=== PATIENT | female | born 1950 | race Caucasian/White ===

== ENCOUNTER → 2019-12-30 08:11 | Outpatient (BNVA) | payer OTHER, BC, SELFPAY | PROVIDERS: PCP Internal Medicine; Referring Provider Internal Medicine; Visit Provider Internal Medicine Cardiovascular Disease | DX: I50.30 Unspecified diastolic (congestive) heart failure (principal); I51.89 Other ill-defined heart diseases; I48.0 Paroxysmal atrial fibrillation; I34.0 Nonrheumatic mitral (valve) insufficiency; Z88.8 Allergy status to other drugs, medicaments and biological substances; Z79.899 Other long term (current) drug therapy | CPT/HCPCS: 93005 ==

== ENCOUNTER → 2020-02-02 08:15 | Outpatient (BNVA) | payer OTHER, SELFPAY | PROVIDERS: PCP Internal Medicine; Referring Provider Internal Medicine; Visit Provider Hospitalist | DX: Z76.89 Persons encountering health services in other specified circumstances (principal) ==

== ENCOUNTER 2020-04-06 08:13 | Outpatient (REF) | payer OTHER, BC, SELFPAY ==
[2020-04-06 10:46] LABS: B Type Natriuretic Peptide 92 pg/mL (<100)
[2020-04-06 10:49] LABS: Anion Gap 11 (12-20); Blood Urea Nitrogen 28 mg/dL (9-16); Calcium 9.3 mg/dL (8.4-10.2); Carbon Dioxide 26 mmol/L (22-29); Chloride 108 mmol/L (96-108); Estimated Glomerular Filt Rate 42; Glucose Random 94 mg/dL (60-115); Potassium 4.1 mmol/L (3.3-5.1); Sodium 141 mmol/L (135-145)
== END 2020-04-06 08:14 | disposition home or self-care (01) ==
LOC: HO.LAB 08:13
PROVIDERS: PCP Internal Medicine; Visit Provider Internal Medicine Cardiovascular Disease
DX: I11.0 Hypertensive heart disease with heart failure (principal); I50.30 Unspecified diastolic (congestive) heart failure; Z79.899 Other long term (current) drug therapy; I48.0 Paroxysmal atrial fibrillation; I34.0 Nonrheumatic mitral (valve) insufficiency
CPT/HCPCS: 36415; 80048; 83880; 93005

== ENCOUNTER → 2020-04-19 13:07 | Outpatient (BNVA) | payer OTHER, BC, SELFPAY | PROVIDERS: PCP Internal Medicine; Visit Provider Internal Medicine Cardiovascular Disease | DX: I48.19 Other persistent atrial fibrillation (principal); I50.30 Unspecified diastolic (congestive) heart failure | CPT/HCPCS: 93005 ==

== ENCOUNTER 2020-04-20 09:37 | Day surgery (SDC) | payer OTHER, BC, SELFPAY ==
[2020-04-20] VITALS (7 sets, daily range): BP systolic 104–132; BP diastolic 52–74; PULSE 50–101; RESP 16–18; TEMP 36.2–36.6; O2SAT 97–100; BMI 31.9
--- NOTE | 2020-04-20 09:51 | MHC.SHP ---
Pre-Procedural Eval Section A The patient is an INPATIENT: No Changes since office visit: Yes Patient answered all questions; No Cold of Flu in the past 2 weeks, No New Medical Problems and No Changes in Medication The History & Physical has been completed within 30 days and I have reviewed it.: Yes Section B Chief Complaint: a-fib Allergies: Allergies Allergy/AdvReac Type Severity Reaction Status Date / Time eliquis Allergy Severe swelling Uncoded 02/02/20 08:37 Plan I have reviewed the history and physical and performed a pertinent physical examination on my patient. No changes have occurred unless specified.
--- NOTE | 2020-04-20 11:15 | HO.ANESPROP2 ---
[facility] Active Problems Active Problems: All Active Problems (Updated 04/19/20 @ 14:27 by Luis Sosa MD) Persistent atrial fibrillation (Acute) VANESSA on CPAP (Acute) Pulmonary hypertension (Acute) (HFpEF) heart failure with preserved ejection fraction (Acute) Diastolic dysfunction (Acute) Paroxysmal atrial fibrillation (Acute) Mitral regurgitation (Acute) HTN (hypertension) (Acute) Obesity (Acute) Past Medical History Medical History (HFpEF) heart failure with preserved ejection fraction Diastolic dysfunction HTN (hypertension) Mitral regurgitation Obesity VANESSA on CPAP Paroxysmal atrial fibrillation Pulmonary hypertension Family History Family History Father No problems noted. Mother CHF (congestive heart failure) CVD (cardiovascular disease) Surgical History Surgical History History of radiofrequency ablation (RFA) procedure for cardiac arrhythmia (~2016) Social History Social History Smoking Status: Never smoker Use of substances other than those prescribed or required for medical reasons: No Have you been hit, kicked, punched, or otherwise hurt by someone within the past year? If so, by whom?: No Advance Directives: No Advance Directives Information Provided: Yes Meds Allergies Allergy/AdvReac Type Severity Reaction Status Date / Time eliquis Allergy Severe swelling Uncoded 04/20/20 10:10 Active Medications: Current Medications Generic Name Dose Route Start Last Admin Trade Name Swapna PRN Reason Stop Dose Admin Sodium Chloride 3 ml 04/20/20 16:00 0.9 % Sodium Chloride Flush 3 Ml Syringe [facility] Home Medications Medication Instructions Recorded Confirmed Last Taken Type calcium carbonate 500 mg calcium 500 mg PO DAILY 12/30/19 04/19/20 Unknown History (1,250 mg) tablet ibandronate 150 mg tablet mg PO 12/30/19 04/19/20 Unknown History levothyroxine 125 mcg tablet 125 mcg PO DAILY 12/30/19 04/20/20 04/20/20 History 09 losartan 25 mg tablet 25 mg PO DAILY 12/30/19 04/19/20 04/20/20 History 09 multivitamin 1 tab PO DAILY 12/30/19 04/19/20 Unknown History propafenone 225 mg tablet 225 mg PO BID 12/30/19 04/20/20 04/20/20 History 09 simvastatin 10 mg tablet 10 mg PO BEDTIME 12/30/19 04/19/20 Unknown History zolpidem 10 mg tablet 10 mg PO BEDTIME PRN 12/30/19 04/19/20 Unknown History cyclobenzaprine 5 mg tablet 5 mg PO TID PRN 02/02/20 04/19/20 Unknown History epinephrine 0.3 mg/0.3 mL IM 02/02/20 04/19/20 Unknown History injection, auto-injector fluticasone 250 mcg-salmeterol 50 INHALATION 02/02/20 04/19/20 Unknown History mcg/dose blistr powdr for inhalation fluticasone propionate 50 1 spray INTRANASAL DAILY 02/02/20 04/19/20 Unknown History mcg/actuation nasal spray,suspension ibuprofen 800 mg tablet 800 mg PO BID 02/02/20 04/19/20 Unknown History furosemide 40 mg tablet 40 mg PO DAILY 04/06/20 04/19/20 Unknown History Exam Exam Date and Time: April 20, 2020 1115 Height,Weight and Vital Signs: Height 5 ft 8 in Weight 95.254 kg Last Vital Signs Temp 97.9 F 04/20/20 10:14 Pulse 101 H 04/20/20 10:14 Resp 18 04/20/20 10:14 BP 129/74 04/20/20 10:14 Pulse Ox 97 04/20/20 10:14 Airway Mallampati Class: III TM Dist: >3cm Neck ROM: Full Heart: irregular Lungs: CTA
[2020-04-20] MEDS: Lactated Ringers 500 ML 50 ML IV (11:21)
[2020-04-20 11:22] LABS: Anion Gap 14 (12-20); Blood Urea Nitrogen 21 mg/dL (9-16); Calcium 8.9 mg/dL (8.4-10.2); Carbon Dioxide 21 mmol/L (22-29); Chloride 110 mmol/L (96-108); Creatinine Clr Calc Pharmacy 51.9; Estimated Glomerular Filt Rate 42; Glucose Random 104 mg/dL (60-115); Sodium 141 mmol/L (135-145)
--- NOTE | 2020-04-20 11:48 | ECG_ITS ---
Test Reason : POST CARDIOVERSION Blood Pressure : / mmHG Vent. Rate : 055 BPM Atrial Rate : 055 BPM P-R Int : 178 ms QRS Dur : 102 ms QT Int : 452 ms P-R-T Axes : 067 060 070 degrees QTc Int : 432 ms Sinus bradycardia Otherwise normal ECG No previous ECGs available Referred By: Luis Sosa Electronically Signed By:LUIS SOSA MD
--- NOTE | 2020-04-20 11:50 | HO.CARDIVERS ---
Cardioversion Procedure Note Cardioversion Date of Procedure: 04/20/2020 Ordering Provider: Myself Performing Provider: Myself Indication for Procedure: Recurrent symptomatic atrial fibrillation Pre-Op Diagnosis: Persistent atrial fibrillation Post-Op Diagnosis: Sinus rhythm Performed with Transesophageal Echo: No History: C history of physical Consent: Verbal and Written consent was obtained from the patient before starting and confirming oral anticoagulation use. The patient was made aware of the risk of the procedure including benefits, alternatives a 2nd opinion. Procedure: After consent obtained, cardioversion pads were attached in AP and the patient was sedated by the anesthesia team. Once adequate sedation achieved, patient was delivered 200 joules of biphasic energy in AP configuration Complications: None Impression: Successfully converted to sinus rhythm Recommendations: 1. Status EKG 2. Increase propafenone to 225 mg t.i.d. 3. Follow-up with EPS in near future 4. Continue oral anticoagulation.
--- NOTE | 2020-04-20 11:52 | HO.POSTANES ---
Post Anesthesia Evaluation Post Anesthesia Evaluation Vital Signs: Vital Signs Temp Pulse Resp BP Pulse Ox 04/20/20 10:14 97.9 F 101 H 18 129/74 97 Anesthesia: General Mental Status: Awake Pain Control: Satisfactory Nausea/Vomiting: None Hydration: Adequate Anesthesia-Related Issues: No Anes. Related Issues
== END 2020-04-20 13:38 | disposition home or self-care (01) ==
PROVIDERS: PCP Internal Medicine; Visit Provider Internal Medicine Cardiovascular Disease
PROC: 5A2204Z Restoration of Cardiac Rhythm, Single (ICD-10-PCS; principal; 2020-04-20 11:30)
DX: I48.19 Other persistent atrial fibrillation (principal); Z79.01 Long term (current) use of anticoagulants; I11.0 Hypertensive heart disease with heart failure; I50.30 Unspecified diastolic (congestive) heart failure; I27.20 Pulmonary hypertension, unspecified; G47.33 Obstructive sleep apnea (adult) (pediatric); Z79.899 Other long term (current) drug therapy
CPT/HCPCS: 36415; 80048; 92960; 93005

== ENCOUNTER → 2020-05-03 09:18 | Outpatient (REF) | payer OTHER, BC, SELFPAY ==
--- NOTE | 2020-05-03 10:58 | ECG_ITS ---
Hook-up date: 2020-05-03 10:32:00 Duration: 28:28:00 Test Indications: HAWK CALVERT Medications: 63328 QRS complexes 3 Ventricular ectopics which represent <1 % of total QRS comp. 17 Supraventricular ectopics which represent <1 % of total QRS comp. * Paced QRS complexs which represent % of total QRS comp. VENTRICULAR ECTOPY 3 Isolated 0 Bigeminal Cycles 0 Couplets 0 Runs 0 Beats in Runs * Beats LONGEST at * BPM at :: -- * Beats FASTEST at * BPM at :: -- SUPRAVENTRICULAR ECTOPY 15 Isolated 1 Couplets 0 Runs 0 Beats in Runs * Beats LONGEST at * BPM at :: -- * Beats FASTEST at * BPM at :: -- HEART RATES 35 MIN at 10:53:45 2020-05-04 58 AVG 88 MAX at 07:49:38 2020-05-04 LONGEST RR 2.5840 secs at 14:05:03 2020-05-03 S-T LEVELS Channel 1 - 128 mm at 10:32:00 2020-05-03 - 128 mm at 10:32:00 2020-05-03 Channel 2 - 128 mm at 10:32:00 2020-05-03 - 128 mm at 10:32:00 2020-05-03 Channel 3 - 128 mm at 02:95:11 -- - 128 mm at 02:95:11 Basic rhythm Normal sinus rhythm Pauses upto 2.5 sconds with HR as low as 35 bpm No sustained Atrial fibrillation Rare Premature atrial complexes Frequent Sinus bradycardia Patient reported symptoms correlated with NSR Referred By: Heladio Sosa Overread By: HELADIO SOSA MD
== END ==
LOC: HO.CARD 09:18
PROVIDERS: PCP Internal Medicine; Visit Provider Internal Medicine Cardiovascular Disease
DX: I48.0 Paroxysmal atrial fibrillation (principal)
CPT/HCPCS: 93226

== ENCOUNTER → 2020-05-10 13:21 | Outpatient (BNVA) | payer OTHER, BC, SELFPAY | PROVIDERS: PCP Internal Medicine; Visit Provider Internal Medicine Cardiovascular Disease | DX: I48.0 Paroxysmal atrial fibrillation (principal); I50.30 Unspecified diastolic (congestive) heart failure; I34.0 Nonrheumatic mitral (valve) insufficiency; R00.1 Bradycardia, unspecified | CPT/HCPCS: 93005 ==

== ENCOUNTER → 2020-05-31 09:05 | Outpatient (BNVA) | payer OTHER, BC, SELFPAY | PROVIDERS: PCP Internal Medicine; Visit Provider Hospitalist ==

== ENCOUNTER → 2020-06-24 14:56 | Outpatient (REF) | payer OTHER, BC, SELFPAY ==
--- NOTE | 2020-06-24 09:50 | ECG_ITS ---
Hook-up date: 2020-06-24 15:23:00 Duration: 47:59:00 Test Indications: ADELSO,UNSPECIFIED AFIB , PAF Medications: 22583 QRS complexes 5 Ventricular ectopics which represent <1 % of total QRS comp. 6 Supraventricular ectopics which represent <1 % of total QRS comp. * Paced QRS complexs which represent % of total QRS comp. VENTRICULAR ECTOPY 5 Isolated 0 Bigeminal Cycles 0 Couplets 0 Runs 0 Beats in Runs * Beats LONGEST at * BPM at :: -- * Beats FASTEST at * BPM at :: -- SUPRAVENTRICULAR ECTOPY 4 Isolated 1 Couplets 0 Runs 0 Beats in Runs * Beats LONGEST at * BPM at :: -- * Beats FASTEST at * BPM at :: -- HEART RATES 36 MIN at 14:14:07 2020-06-25 58 AVG 86 MAX at 15:25:15 2020-06-24 LONGEST RR 2.2560 secs at 14:29:49 2020-06-25 S-T LEVELS Channel 1 - 128 mm at 15:23:00 2020-06-24 - 128 mm at 15:23:00 2020-06-24 Channel 2 - 128 mm at 15:23:00 2020-06-24 - 128 mm at 15:23:00 2020-06-24 Channel 3 - 128 mm at 03:44:21 -- - 128 mm at 03:44:21 Underlying rhythm is sinus; Average ventricular rate 58/min; 36-86/min; Longest pause 2.2sec at 14:29Hrs; Very rare PAC/PVC; During activity described as 'spinning bike', patient had shortness of breath towards end of exercise; apart from sinus bradycardia, no other arrhythmias noted; during symptoms of 'lightheaded', 'palpitations', no clear arrhthmias noted, but there is underlying artifact. Possible chronotronic incompetence; correlate clinically. Referred By: Sandrine Jensen Overread By: RUPERTO MADRID
== END ==
LOC: HO.CARD 14:56
PROVIDERS: PCP Internal Medicine; Referring Provider Internal Medicine; Visit Provider Internal Medicine Cardiovascular Disease
DX: R00.1 Bradycardia, unspecified (principal)
CPT/HCPCS: 93226

== ENCOUNTER 2020-07-19 11:15 | Day surgery (SDC) | payer OTHER, BC, SELFPAY ==
[2020-07-19] VITALS (7 sets, daily range): BP systolic 120–146; BP diastolic 55–88; PULSE 49–68; RESP 16–18; TEMP 36.2–36.5; O2SAT 97–98; BMI 31.8
--- NOTE | 2020-07-19 12:29 | MHC.SHP ---
Pre-Procedural Eval Section A The patient is an INPATIENT: No Changes since office visit: Yes Patient answered all questions; No New Medical Problems and No Changes in Medication The History & Physical has been completed within 30 days and I have reviewed it.: Yes Section B Chief Complaint: a-fib Allergies: Allergies Allergy/AdvReac Type Severity Reaction Status Date / Time eliquis Allergy Severe swelling Uncoded 05/31/20 09:22 Plan I have reviewed the history and physical and performed a pertinent physical examination on my patient. No changes have occurred unless specified.
--- NOTE | 2020-07-19 13:29 | HO.ANESPROP2 ---
[facility] Active Problems Active Problems: All Active Problems (Updated 07/19/20 @ 10:03 by Luis Sosa MD) Persistent atrial fibrillation (Acute) Sinus bradycardia (Acute) VANESSA on CPAP (Acute) Pulmonary hypertension (Acute) (HFpEF) heart failure with preserved ejection fraction (Acute) Diastolic dysfunction (Acute) Mitral regurgitation (Acute) HTN (hypertension) (Acute) Obesity (Acute) Past Medical History Medical History (HFpEF) heart failure with preserved ejection fraction Diastolic dysfunction HTN (hypertension) Mitral regurgitation Obesity VANESSA on CPAP Paroxysmal atrial fibrillation Persistent atrial fibrillation Pulmonary hypertension Sinus bradycardia Family History Family History Father No problems noted. Mother CHF (congestive heart failure) CVD (cardiovascular disease) Surgical History Surgical History History of radiofrequency ablation (RFA) procedure for cardiac arrhythmia (~2017) Social History Social History Smoking Status: Never smoker Use of substances other than those prescribed or required for medical reasons: No Are you DNR?: No Advance Directives: No Advance Directives Information Provided: Yes Meds Allergies Allergy/AdvReac Type Severity Reaction Status Date / Time eliquis Allergy Severe swelling Uncoded 05/31/20 09:22 Active Medications: Current Medications Generic Name Dose Route Start Last Admin Trade Name Freq PRN Reason Stop Dose Admin Sodium Chloride 3 ml 07/19/20 16:00 0.9 % Sodium Chloride Flush [address] [facility] Medications Medication Instructions Recorded Confirmed Last Taken Type calcium carbonate 500 mg calcium 500 mg PO DAILY 12/30/19 07/19/20 Unknown History (1,250 mg) tablet ibandronate 150 mg tablet mg PO 12/30/19 07/19/20 Unknown History levothyroxine 125 mcg tablet 125 mcg PO DAILY 12/30/19 07/19/20 07/19/20 08:30 History losartan 25 mg tablet 25 mg PO DAILY 12/30/19 07/19/20 07/19/20 08:30 History multivitamin 1 tab PO DAILY 12/30/19 07/19/20 Unknown History zolpidem 10 mg tablet 10 mg PO BEDTIME PRN 12/30/19 07/19/20 Unknown History cyclobenzaprine 5 mg tablet 5 mg PO TID PRN 02/02/20 07/19/20 Unknown History epinephrine 0.3 mg/0.3 mL IM 02/02/20 07/19/20 Unknown History injection, auto-injector fluticasone 250 mcg-salmeterol 50 INHALATION 02/02/20 07/19/20 Unknown History mcg/dose blistr powdr for inhalation fluticasone propionate 50 1 spray INTRANASAL DAILY 02/02/20 07/19/20 Unknown History mcg/actuation nasal spray,suspension ibuprofen 800 mg tablet 800 mg PO BID 02/02/20 07/19/20 Unknown History furosemide 40 mg tablet 40 mg PO DAILY 04/06/20 07/19/20 Unknown History propafenone 225 mg 225 mg PO .3 times a day cap 07/19/20 07/19/20 07/19/20 08:30 History capsule,extended release 12 hr Exam Exam Date and Time: July 19, 2020 1329 Height,Weight and Vital Signs: Height 5 ft 8.5 in Weight 96.615 kg Last Vital Signs Temp 97.7 F 07/19/20 12:23 Pulse 68 07/19/20 12:23 Resp 16 07/19/20 12:23 BP 146/76 H 07/19/20 12:23 Pulse Ox 98 07/19/20 12:23 Airway Mallampati Class: II TM Dist: >3cm Neck ROM: Full Assessment and Plan Assessment Anesthesia Assessment: Anesthesia Plan Discussed and Chart Reviewed Final Anesthetic Review NPO: Yes ASA Class: III Final Preanesthetic Review: No Changes in Pt Med Stat, Meds/Allgs Chart Reviewed, Consent Obtained/Reviewed and Anes Risks/Benef Reviewed Patient Risk: Intermediate Procedure Risk: Low Assessment/Block/Sedation in SS: Assess/Block/Sedation-SS Anesthetic Plan Anesthetic Plan: MAC: Disposition: Standard PACU
--- NOTE | 2020-07-19 13:46 | P.PNCAR_ITS ---
Cardioversion Procedure Note Cardioversion Date of Procedure: 07/19/2020 Ordering Provider: Myself Performing Provider: Myself Indication for Procedure: Recurrent persistent symptomatic atrial fibrillation with controlled rate Pre-Op Diagnosis: Atrial fibrillation Post-Op Diagnosis: Sinus rhythm Performed with Transesophageal Echo: No History: See the history and physical Consent: Verbal and Written consent was obtained from the patient before starting and after confirming oral anticoagulation. The patient was made aware of the risk of the procedure including benefits, alternatives and 2nd opinion. Procedure: After consent obtained, cardioversion pads were attached in anteroposterior configuration and the patient was sedated by the anesthesia team. Once adequate sedation achieved, patient was delivered 200 joules of biphasic synchronized energy in anteroposterior configuration. Patient conver dre to sinus rhythm after a long pause Complications: None Impression: Successful conversion to sinus rhythm Recommendations: 1. EPS evaluation for reconsideration of ablation and/or switch antiarrhythmic drug therapy. 2. Will obtain Holter monitor 3. Twelve lead EKG 4. Continue current Cardizem and propafenone does along with Xarelto.
--- NOTE | 2020-07-19 13:46 | ECG_ITS ---
Test Reason : POST CARDIOVERSION Blood Pressure : / mmHG Vent. Rate : 051 BPM Atrial Rate : 051 BPM P-R Int : 200 ms QRS Dur : 114 ms QT Int : 468 ms P-R-T Axes : 059 054 105 degrees QTc Int : 431 ms Sinus bradycardia Nonspecific ST and T wave abnormality Abnormal ECG When compared with ECG of 20-APR-2020 12:04, No significant change was found Referred By: Luis Sosa Electronically Signed By:RUPERTO MADRID
== END 2020-07-19 14:57 | disposition home or self-care (01) ==
PROVIDERS: PCP Internal Medicine; Visit Provider Internal Medicine Cardiovascular Disease
PROC: 5A2204Z Restoration of Cardiac Rhythm, Single (ICD-10-PCS; principal; 2020-07-19 13:00)
DX: I48.19 Other persistent atrial fibrillation (principal); Z79.01 Long term (current) use of anticoagulants; I11.0 Hypertensive heart disease with heart failure; I50.30 Unspecified diastolic (congestive) heart failure; G47.33 Obstructive sleep apnea (adult) (pediatric); Z99.89 Dependence on other enabling machines and devices; Z79.899 Other long term (current) drug therapy
CPT/HCPCS: 92960; 93005

== ENCOUNTER → 2020-07-29 11:09 | Outpatient (BNVA) | payer OTHER, BC, SELFPAY | PROVIDERS: PCP Internal Medicine; Visit Provider Internal Medicine Cardiovascular Disease | DX: I48.19 Other persistent atrial fibrillation (principal); I50.32 Chronic diastolic (congestive) heart failure; I27.20 Pulmonary hypertension, unspecified | CPT/HCPCS: 93005 ==

== ENCOUNTER → 2020-09-27 08:17 | Outpatient (REF) | payer OTHER, BC, SELFPAY ==
--- NOTE | 2020-09-27 08:21 | CA_ITS ---
Transthoracic Echocardiogram Patient (Last, First, Middle): Aysha Fabian, Gender: Female Date of : 1950 Age: 69 Procedure Date: 09/27/2020 Procedure Type: Transthoracic Echocardiogram Location: OP Height: 175.26 cm Weight: 97.52 kg BSA: 2.13 m2 Heart Rate: bpm BP: 130 / 80 mmHg Underwriting Technician: Referring MD: Luis Sosa MD Symptoms: I50.30 - Unspecified diastolic (congestive) heart failure Study Quality: Good ECG Rhythm: Sinus Conclusions: - The left ventricular systolic function is normal. The visually estimated ejection fraction is between 60-65%. - Evidence suggests grade III (severe) diastolic dysfunction. - Moderate pulmonary hypertension is present. - There is mild mitral valve regurgitation. - There is mild tricuspid valve regurgitation. Findings Left Ventricle Normal left ventricular cavity size. There is normal left ventricular wall thickness. The left ventricular systolic function is normal. The visually estimated ejection fraction is between 60-65%. There is no evidence of regional wall motion abnormalities. E/E prime ratio is between 8 and 15 consistent with indeterminate filling pressures. Evidence suggests grade III (severe) diastolic dysfunction. Right Ventricle Normal right ventricular cavity size and systolic function. Atria The left atrium is moderately dilated. The right atrium is normal in size. Aortic Valve There is a normal trileaflet aortic valve. There is no aortic valve stenosis. There is no aortic valve regurgitation. Mitral Valve The mitral valve appears normal. There is mild mitral valve regurgitation. There is no mitral valve stenosis. Pulmonic Valve The pulmonic valve was not well visualized. Tricuspid Valve Normal tricuspid valve structure. There is mild tricuspid valve regurgitation. The right ventricular systolic pressure is 59 mmHg. Moderate pulmonary hypertension is present. Great Vessels The aortic annulus, sinuses of valsalva, asc aorta, and aortic arch are normal in size. Venous The inferior vena cava is mildly dilated and collapses greater than 50% with inspiration. Pericardium/Pleural There is no evidence of pericardial effusion. Prior Study Comparison Changes noted compared to prior study dated: 10/15/2019. Mitral regurgitation improved. Measurements 2D Linear Measurements RVIDd: 3.65 RVIDd Index: 1.71 IVSd: 0.90 0.6-0.9/0.6-1.0 cm LVIDd: 5.63 3.9-5.3/4.2-5.9 cm LVIDd Index: 2.64 2.4-3.2/2.2-3.1 cm/m2 LVIDs: 3.52 2.0-3.6 cm LVPWd: 1.00 0.7-1.1 cm Ao Root: 3.20 2.1-3.5 cm LA Diam: 5.10 2.7-3.8/3.0-4.0 cm LAIDs Index: 2.39 1.5-2.3 cm/m2 LV Mass: 258.44 67-162/88-224 g LV Mass Index: 121.34 43-95/49-115 g/m2 LVOT Diam: 2.20 3.0+(-)1.3 cm 2D Systolic Function EF 4C: 64.80 >55% EF 2C: 62.10 >55% EF BiP: 63.50 >55% Mitral Valve MV Pk E: 1.23 MV PK A: 0.56 MV Decel Time: 154.00 E/A: 2.20 E'Lateral: 12.70 E'Medial: 7.72 E/E' Med: 15.90 E/E' Lat: 9.70 MR Vol - PW Dopp: 39.38 MR VTI: 1.79 MR ERO: 22.00 MR Alias Iglesia: 0.38 MR RAD: 0.70 Aortic Valve AoV Pk Iglesia: 1.37 AoV Mn Iglesia: 0.97 AoV VTI: 0.31 AoV Pk Grad: 8.00 Aov Mn Grad: 4.00 ANTONI Cont.VTI: 3.18 LVOT LVOT Pk Iglesia: 1.22 LVOT Mn Iglesia: 0.74 LVOT VTI: 0.26 LVOT Pk Grad: 6.00 LVOT Mn Grad: 3.00 LVOT Diam: 2.20 LVOT Area: 3.80 Diastolic Function MV Pk E: 1.23 MV Pk A: 0.56 E/A: 2.20 E'Medial: 7.72 E/E' Med: 15.90 E' Laterial: 12.70 E/E' Lat: 9.70 Tricuspid Valve TR Pk Iglesia: 3.57 TR Pk Grad: 51.00 RA Press: 8.00 RVSP: 59.00 Great Vessels Aorta Ao Root-2D: 3.20 2.0-3.7 cm Ao Asc: 3.00 2.1-3.4 cm Ao Arch: 2.70 Updated in Other Vendor System with Status of Final Dawit Hair MD electronically signed on 09/27/2020 1:55:46 PM with status of Final
== END ==
LOC: HO.CARD 08:17
PROVIDERS: Visit Provider Internal Medicine Cardiovascular Disease
DX: I27.20 Pulmonary hypertension, unspecified (principal); I34.0 Nonrheumatic mitral (valve) insufficiency; I48.0 Paroxysmal atrial fibrillation; I50.30 Unspecified diastolic (congestive) heart failure
CPT/HCPCS: 93306

== ENCOUNTER → 2020-10-07 13:55 | Outpatient (BNVA) | payer OTHER, BC, SELFPAY | PROVIDERS: PCP Internal Medicine; Visit Provider Internal Medicine Cardiovascular Disease | DX: I48.0 Paroxysmal atrial fibrillation (principal); I50.32 Chronic diastolic (congestive) heart failure | CPT/HCPCS: 93005 ==

== ENCOUNTER 2020-10-21 07:52 | Outpatient (REF) | payer OTHER, BC, SELFPAY | END 2020-10-21 07:53 | disposition home or self-care (01) | LOC: HO.RESP 07:52 | PROVIDERS: PCP Internal Medicine; Visit Provider Hospitalist | DX: Z13.89 Encounter for screening for other disorder (principal) ==

== ENCOUNTER → 2021-01-10 08:20 | Outpatient (BNVA) | payer OTHER, BC, SELFPAY | PROVIDERS: PCP Internal Medicine; Referring Provider Internal Medicine; Visit Provider Internal Medicine Cardiovascular Disease | DX: I50.32 Chronic diastolic (congestive) heart failure (principal); I48.0 Paroxysmal atrial fibrillation | CPT/HCPCS: 93005 ==

== ENCOUNTER → 2021-04-19 08:19 | Outpatient (BNVA) | payer OTHER, BC, SELFPAY | PROVIDERS: PCP Internal Medicine; Referring Provider Internal Medicine; Visit Provider Internal Medicine Cardiovascular Disease | DX: I50.32 Chronic diastolic (congestive) heart failure (principal); I48.0 Paroxysmal atrial fibrillation | CPT/HCPCS: 93005 ==

== ENCOUNTER 2021-04-27 08:14 | Outpatient (REF) | payer OTHER, BC, SELFPAY ==
[2021-04-27 10:25] LABS: B Type Natriuretic Peptide 78 pg/mL (<100)
[2021-04-27 10:28] LABS: Anion Gap 13 (12-20); Blood Urea Nitrogen 20 mg/dL (9-16); Calcium 9.7 mg/dL (8.4-10.2); Carbon Dioxide 28 mmol/L (22-29); Chloride 105 mmol/L (96-108); Estimated Glomerular Filt Rate 36; Glucose Random 93 mg/dL (60-115); Magnesium 2.3 mg/dL (1.6-2.6); Potassium 4.7 mmol/L (3.3-5.1); Sodium 141 mmol/L (135-145)
== END 2021-04-27 08:15 | disposition home or self-care (01) ==
LOC: HO.LAB 08:14
PROVIDERS: PCP Internal Medicine; Visit Provider Internal Medicine Cardiovascular Disease
DX: I27.20 Pulmonary hypertension, unspecified (principal); I50.32 Chronic diastolic (congestive) heart failure; R94.2 Abnormal results of pulmonary function studies; G47.33 Obstructive sleep apnea (adult) (pediatric); Z99.89 Dependence on other enabling machines and devices
CPT/HCPCS: 36415; 80048; 83735; 83880

== ENCOUNTER 2021-05-10 09:33 | Outpatient (REF) | payer OTHER, BC, SELFPAY ==
[2021-05-10 10:59] LABS: B Type Natriuretic Peptide 96 pg/mL (<100)
[2021-05-10 11:09] LABS: Anion Gap 13 (12-20); Blood Urea Nitrogen 30 mg/dL (9-16); Calcium 9.2 mg/dL (8.4-10.2); Carbon Dioxide 23 mmol/L (22-29); Chloride 108 mmol/L (96-108); Estimated Glomerular Filt Rate 28; Glucose Random 91 mg/dL (60-115); Potassium 4.3 mmol/L (3.3-5.1); Sodium 140 mmol/L (135-145)
== END 2021-05-10 09:34 | disposition home or self-care (01) ==
LOC: HO.LAB 09:33
PROVIDERS: PCP Internal Medicine; Visit Provider Internal Medicine Cardiovascular Disease
DX: I50.32 Chronic diastolic (congestive) heart failure (principal)
CPT/HCPCS: 36415; 80048; 83880

== ENCOUNTER 2021-05-28 08:08 | Outpatient (REF) | payer OTHER, BC, SELFPAY ==
[2021-05-28 09:56] LABS: Anion Gap 11 (12-20); Blood Urea Nitrogen 29 mg/dL (9-16); Calcium 9.5 mg/dL (8.4-10.2); Carbon Dioxide 25 mmol/L (22-29); Chloride 106 mmol/L (96-108); Estimated Glomerular Filt Rate 27; Glucose Random 92 mg/dL (60-115); Potassium 4.3 mmol/L (3.3-5.1); Sodium 138 mmol/L (135-145)
[2021-05-28 09:57] LABS: B Type Natriuretic Peptide 70 pg/mL (<100)
== END 2021-05-28 08:09 | disposition home or self-care (01) ==
LOC: HO.LAB 08:08
PROVIDERS: Absent Provider Internal Medicine; PCP Internal Medicine; Visit Provider Internal Medicine Cardiovascular Disease
DX: I50.32 Chronic diastolic (congestive) heart failure (principal)
CPT/HCPCS: 36415; 80048; 83880

== ENCOUNTER 2021-06-11 10:49 | Outpatient (REF) | payer OTHER, BC, SELFPAY ==
[2021-06-11 11:43] LABS: Anion Gap 12 (12-20); Blood Urea Nitrogen 24 mg/dL (9-16); Carbon Dioxide 21 mmol/L (22-29); Chloride 110 mmol/L (96-108); Estimated Glomerular Filt Rate 32; Glucose Random 89 mg/dL (60-115); Potassium 4.4 mmol/L (3.3-5.1); Sodium 139 mmol/L (135-145)
== END 2021-06-11 10:50 | disposition home or self-care (01) ==
LOC: HO.LAB 10:49
PROVIDERS: PCP Internal Medicine; Visit Provider Internal Medicine Cardiovascular Disease
DX: I50.32 Chronic diastolic (congestive) heart failure (principal)
CPT/HCPCS: 36415; 80048

== ENCOUNTER 2021-06-25 10:55 | Outpatient (REF) | payer OTHER, BC, SELFPAY ==
[2021-06-25 12:01] LABS: Anion Gap 13 (12-20); Blood Urea Nitrogen 30 mg/dL (9-16); Calcium 9.5 mg/dL (8.4-10.2); Carbon Dioxide 22 mmol/L (22-29); Chloride 108 mmol/L (96-108); Estimated Glomerular Filt Rate 32; Glucose Random 85 mg/dL (60-115); Potassium 4.3 mmol/L (3.3-5.1); Sodium 139 mmol/L (135-145)
== END 2021-06-25 10:56 | disposition home or self-care (01) ==
LOC: HO.LAB 10:55
PROVIDERS: PCP Internal Medicine; Visit Provider Internal Medicine Cardiovascular Disease
DX: I10 Essential (primary) hypertension (principal); I27.20 Pulmonary hypertension, unspecified; I48.0 Paroxysmal atrial fibrillation
CPT/HCPCS: 36415; 80048

== ENCOUNTER → 2021-07-13 12:47 | Outpatient (BNVA) | payer OTHER, BC, SELFPAY | PROVIDERS: PCP Internal Medicine; Referring Provider Internal Medicine; Visit Provider Internal Medicine Cardiovascular Disease | DX: I48.0 Paroxysmal atrial fibrillation (principal); I50.32 Chronic diastolic (congestive) heart failure | CPT/HCPCS: 93005 ==

== ENCOUNTER → 2021-10-10 08:35 | Outpatient (BNVA) | payer BC, SELFPAY | PROVIDERS: PCP Internal Medicine; Referring Provider Internal Medicine; Visit Provider Internal Medicine Cardiovascular Disease | DX: R00.1 Bradycardia, unspecified (principal); I48.0 Paroxysmal atrial fibrillation; I50.32 Chronic diastolic (congestive) heart failure | CPT/HCPCS: 93005 ==

== ENCOUNTER → 2021-11-11 08:21 | Outpatient (REF) | payer BC, SELFPAY ==
--- NOTE | 2021-11-11 08:24 | CA_ITS ---
Transthoracic Echocardiogram Patient (Last, First, Middle): Aysha Fabian, Gender: Female Date of : 1950 Age: 71 Procedure Date: 11/11/2021 Procedure Type: Transthoracic Echocardiogram Location: OP Height: 172.72 cm Weight: 97.52 kg BSA: 2.11 m2 Heart Rate: 60 bpm BP: 150 / 80 mmHg Tile Designer: HALLE Hopson MD: Sandrine Jensen FIRE INVESTIGATION MANAGER-C Solution Design Engineer: Luis Sosa MD Symptoms: I51.89 - Other ill-defined heart diseases Study Quality: Adequate ECG Rhythm: Sinus Conclusions: - 1. Normal LV systolic function with grade 3 diastolic dysfunction 2. Mildly dilated left atrium 3. Mild mitral regurgitation 4. Gwcb-me-[id number] tricuspid regurgitation 5. Chxy-jn-ifrmsvhj elevation of right ventricular systolic pressure with normal right atrial pressures 6. No gross pericardial effusion Findings Left Ventricle Normal left ventricular size, thickness, and systolic function. The visually estimated ejection fraction is between 60-65%. Spectral Doppler is indicative of a restrictive filling pattern. E/E prime ratio is >15, consistent with elevated filling pressures. Evidence suggests grade III (severe) diastolic dysfunction. Right Ventricle Normal right ventricular cavity size and systolic function. Atria The left atrium is mildly dilated. There is no evidence of interatrial shunt. The right atrium is normal in size. Aortic Valve The aortic valve structure and function is likely normal. There is no aortic valve stenosis. There is trace (trivial) aortic valve regurgitation. Mitral Valve There is mild anterior and posterior mitral leaflet thickening. There is mild mitral valve regurgitation. There is no mitral valve stenosis. Pulmonic Valve The pulmonic valve is likely normal. There is trace pulmonic valve regurgitation. Tricuspid Valve Normal tricuspid valve structure. There is mild to moderate tricuspid valve regurgitation. Normal right atrial pressure. Moderate pulmonary hypertension is present. Great Vessels All visible segments of the aorta are normal in size. The pulmonary artery was not well visualized. Venous The inferior vena cava is normal in size and collapses greater than 50% with inspiration. Pericardium/Pleural There is no evidence of pericardial effusion. Prior Study Comparison Changes noted compared to prior study dated: 09/27/2020. RV systolic pressure is measured at 46 mm Hg which is lower compared to prior study, could be underestimated. Measurements 2D Linear Measurements IVSd: 0.95 0.6-0.9/0.6-1.0 cm LVIDd: 5.23 3.9-5.3/4.2-5.9 cm LVIDd Index: 2.48 2.4-3.2/2.2-3.1 cm/m2 LVIDs: 3.26 2.0-3.6 cm LVPWd: 1.26 0.7-1.1 cm LA Diam: 3.90 2.7-3.8/3.0-4.0 cm LAIDs Index: 1.85 1.5-2.3 cm/m2 LV Mass: 279.01 67-162/88-224 g LV Mass Index: 132.23 43-95/49-115 g/m2 LVOT Diam: 2.00 3.0+(-)1.3 cm 2D Systolic Function EF 4C: 57.80 >55% EF 2C: 60.50 >55% EF BiP: 60.50 >55% Mitral Valve MV Pk E: 1.52 MV PK A: 0.43 MV Decel Time: 196.00 E/A: 3.60 E'Lateral: 11.10 E'Medial: 6.96 E/E' Med: 21.80 E/E' Lat: 13.70 PHT: 57.00 MVA PHT: 3.86 Decel Alfalfa: 7.76 MR Vol - PW Dopp: 3.86 MR VTI: 1.93 MR ERO: 2.00 MR Alias Ilgesia: 0.39 MR RAD: 0.20 Aortic Valve AoV Pk Iglesia: 1.54 AoV Mn Iglesia: 1.05 AoV VTI: 0.41 AoV Pk Grad: 9.00 Aov Mn Grad: 5.00 ANTONI Cont.VTI: 2.10 AI Pk Iglesia: 3.26 AI Alfalfa: 0.93 LVOT LVOT Pk Iglesia: 1.16 LVOT Mn Iglesia: 0.75 LVOT VTI: 0.27 LVOT Pk Grad: 5.00 LVOT Mn Grad: 3.00 LVOT Diam: 2.00 LVOT Area: 3.14 Diastolic Function MV Pk E: 1.52 MV Pk A: 0.43 E/A: 3.60 E'Medial: 6.96 E/E' Med: 21.80 E' Laterial: 11.10 E/E' Lat: 13.70 Right Ventricle TAPSE (mm): 27.20 TVS' Iglesia: 14.50 Tricuspid Valve TR Pk Iglesia: 3.27 TR Pk Grad: 43.00 RA Press: 3.00 RVSP: 46.00 Great Vessels Aorta Sinus of Valsalva: 3.50 2.0-3.5 cm Ao Asc: 3.30 2.1-3.4 cm Pulmonary Valve PV Pk Iglesia: 1.22 Peak PV Grad: 6.00 Updated in Other Vendor System with Status of Final Luis Sosa MD electronically signed on 11/12/2021 11:59:11 AM with status of Final
== END ==
LOC: HO.CARD 08:21
PROVIDERS: Visit Provider Nurse Practitioner Family
DX: I10 Essential (primary) hypertension (principal); I27.20 Pulmonary hypertension, unspecified; I34.0 Nonrheumatic mitral (valve) insufficiency; I51.89 Other ill-defined heart diseases
CPT/HCPCS: 93306

== ENCOUNTER 2022-01-18 10:26 | Day surgery (SDC) | payer BC, SELFPAY ==
[2022-01-18] VITALS (7 sets, daily range): BP systolic 107–142; BP diastolic 59–79; PULSE 57–95; RESP 16–20; TEMP 36.3–36.6; O2SAT 95–99; BMI 32.6; BMI 32.5
--- NOTE | 2022-01-18 09:20 | HO.ANESPROP2 ---
[facility] Active Problems Active Problems: All Active Problems (Updated 11/28/21 @ 13:02 by Gab Soares MD) Abnormal PFTs (pulmonary function tests) (Acute) Paroxysmal atrial fibrillation (Acute) VANESSA on CPAP (Acute) Pulmonary hypertension (Acute) (HFpEF) heart failure with preserved ejection fraction (Acute) Diastolic dysfunction (Acute) Mitral regurgitation (Acute) HTN (hypertension) (Acute) Obesity (Acute) Past Medical History Medical History (HFpEF) heart failure with preserved ejection fraction Abnormal PFTs (pulmonary function tests) Diastolic dysfunction HTN (hypertension) Mitral regurgitation Obesity VANESSA on CPAP Paroxysmal atrial fibrillation Persistent atrial fibrillation Persistent atrial fibrillation Pulmonary hypertension Sinus bradycardia Functional capacity: independent ambulation Patient : No Family History Family History Father No problems noted. Mother CHF (congestive heart failure) CVD (cardiovascular disease) Family history of problems with anesthesia: No Surgical History Surgical History History of radiofrequency ablation (RFA) procedure for cardiac arrhythmia (~2016) History of Problems with Anesthesia: No Social History Social History Alcohol intake: current Alcohol intake frequency: holidays/special occasions only Patient Tobacco Use Status: Never used Tobacco Are you DNR?: No Advance Directives: No Advance Directives Information Provided: Yes Recently lost weight without trying: No Nutrition Risks: No Nutritional Risk Patient : No Meds Allergies Allergy/AdvReac Type Severity Reaction Status Date / Time eliquis Allergy Severe swelling Uncoded 11/28/21 08:44 Home Medications Medication Instructions Recorded Confirmed Last Taken Type losartan 25 mg tablet 25 mg PO DAILY 12/30/19 01/02/22 07/19/20 08:30 History multivitamin 1 tab PO DAILY 12/30/19 01/02/22 Unknown History zolpidem 10 mg tablet 10 mg PO BEDTIME PRN 12/30/19 01/02/22 Unknown History fluticasone 250 mcg-salmeterol 50 inhalation 02/02/20 01/02/22 Unknown History mcg/dose blistr powdr for inhalation fluticasone propionate 50 1 spray intranasal DAILY 02/02/20 01/02/22 Unknown History mcg/actuation nasal spray,suspension diltiazem HCl 120 mg 120 mg PO DAILY 07/13/21 01/02/22 Unknown History capsule,extended release 24 hr ibuprofen 800 mg tablet 800 mg PO BID PRN 11/28/21 01/02/22 Unknown History furosemide 40 mg tablet 40 mg PO DAILY 01/02/22 01/02/22 Unknown History levothyroxine 112 mcg tablet 112 mcg PO DAILY 01/02/22 01/02/22 Unknown History empagliflozin 10 mg tablet 1 tab PO DAILY 01/18/22 01/18/22 01/18/22 History (Jardiance) Exam Exam Date and Time: January 18, 2022 0920 Height,Weight and Vital Signs: Height 5 ft 9 in Weight 99.79 kg Airway Heart: regular Lungs: CTA Assessment and Plan Final Anesthetic Review Family History of Problems with Anesthesia: No History of Problems with Anesthesia: No ASA Class: III Final Preanesthetic Review: Meds/Allgs Chart Reviewed and Consent Obtained/Reviewed Patient Risk: Intermediate Procedure Risk: Low Anesthetic Plan Anesthetic Plan: GA Disposition: Standard PACU
--- NOTE | 2022-01-18 10:29 | MHC.SHP ---
Pre-Procedural Eval Section A Date of Service: 01/18/22 The patient is an INPATIENT: No Changes since office visit: Yes Changes in Medication and Yes Patient answered all questions; No Cold of Flu in the past 2 weeks and No New Medical Problems The History & Physical has been completed within 30 days and I have reviewed it.: Yes Section B Chief Complaint: afib Allergies: Allergies Allergy/AdvReac Type Severity Reaction Status Date / Time eliquis Allergy Severe swelling Uncoded 11/28/21 08:44 Plan I have reviewed the history and physical and performed a pertinent physical examination on my patient. No changes have occurred unless specified.
--- NOTE | 2022-01-18 10:32 | ECG_ITS ---
Test Reason : Check rhythm status Blood Pressure : / mmHG Vent. Rate : 095 BPM Atrial Rate : 095 BPM P-R Int : 184 ms QRS Dur : 112 ms QT Int : 366 ms P-R-T Axes : 061 027 212 degrees QTc Int : 459 ms Normal sinus rhythm Nonspecific ST abnormality Inferior leads ST & T wave abnormality, consider lateral ischemia Abnormal ECG When compared with ECG of 19-JUL-2020 13:59, Vent. rate has increased BY 44 BPM T wave inversion now evident in Inferior leads T wave inversion now evident in Anterolateral leads Referred By: Kyree Parker Electronically Signed By:TUNG WILEY MD
--- NOTE | 2022-01-18 11:19 | P.CONAN_ITS ---
[facility] Active Problems Active Problems: All Active Problems (Updated 11/28/21 @ 13:02 by Gab Soares MD) Abnormal PFTs (pulmonary function tests) (Acute) Paroxysmal atrial fibrillation (Acute) VANESSA on CPAP (Acute) Pulmonary hypertension (Acute) (HFpEF) heart failure with preserved ejection fraction (Acute) Diastolic dysfunction (Acute) Mitral regurgitation (Acute) HTN (hypertension) (Acute) Obesity (Acute) Past Medical History Medical History (HFpEF) heart failure with preserved ejection fraction Abnormal PFTs (pulmonary function tests) Diastolic dysfunction HTN (hypertension) Mitral regurgitation Obesity VANESSA on CPAP Paroxysmal atrial fibrillation Persistent atrial fibrillation Persistent atrial fibrillation Pulmonary hypertension Sinus bradycardia Functional capacity: independent ambulation Family History Family History Father No problems noted. Mother CHF (congestive heart failure) CVD (cardiovascular disease) Family history of problems with anesthesia: No Surgical History Surgical History History of radiofrequency ablation (RFA) procedure for cardiac arrhythmia (~2017) History of Problems with Anesthesia: No Social History Social History Alcohol intake: current Alcohol intake frequency: holidays/special occasions only Patient Tobacco Use Status: Never used Tobacco Are you DNR?: No Advance Directives: No Advance Directives Information Provided: Yes Recently lost weight without trying: No Nutrition Risks: No Nutritional Risk Patient : No Meds Allergies Allergy/AdvReac Type Severity Reaction Status Date / Time eliquis Allergy Severe swelling Uncoded 11/28/21 08:44 Active Medications: Current Medications Sodium Chloride (0.9 % Sodium Chloride Flush 3 Ml Syringe) [id number] Home Medications Medication Instructions Recorded Confirmed Last Taken Type losartan 25 mg tablet 25 mg PO DAILY 12/30/19 01/02/22 07/19/20 08:30 History multivitamin 1 tab PO DAILY 12/30/19 01/02/22 Unknown History zolpidem 10 mg tablet 10 mg PO BEDTIME PRN 12/30/19 01/02/22 Unknown History fluticasone 250 mcg-salmeterol 50 inhalation 02/02/20 01/02/22 Unknown History mcg/dose blistr powdr for inhalation fluticasone propionate 50 1 spray intranasal DAILY 02/02/20 01/02/22 Unknown History mcg/actuation nasal spray,suspension diltiazem HCl 120 mg 120 mg PO DAILY 07/13/21 01/02/22 Unknown History capsule,extended release 24 hr ibuprofen 800 mg tablet 800 mg PO BID PRN 11/28/21 01/02/22 Unknown History furosemide 40 mg tablet 40 mg PO DAILY 01/02/22 01/02/22 Unknown History levothyroxine 112 mcg tablet 112 mcg PO DAILY 01/02/22 01/02/22 Unknown History empagliflozin 10 mg tablet 1 tab PO DAILY 01/18/22 01/18/22 01/18/22 History (Jardiance) Exam Exam Date and Time: January 18, 2022 1119 Height,Weight and Vital Signs: Height 5 ft 9 in Weight 99.79 kg Last Vital Signs Temp 98 F 01/18/22 10:38 Pulse 95 01/18/22 10:38 Resp 18 01/18/22 10:38 BP 142/79 H 01/18/22 10:38 Pulse Ox 99 01/18/22 10:38 O2 Del Method 01/18/22 10:38 Airway Heart: regular Lungs: CTA Assessment and Plan Final Anesthetic Review Family History of Problems with Anesthesia: No History of Problems with Anesthesia: No ASA Class: III Final Preanesthetic Review: Meds/Allgs Chart Reviewed and Anes Risks/Benef Reviewed Patient Risk: Intermediate Procedure Risk: Low Anesthetic Plan Anesthetic Plan: GA Disposition: Standard PACU
--- NOTE | 2022-01-18 11:57 | ECG_ITS ---
Test Reason : s/p cardioversion Blood Pressure : / mmHG Vent. Rate : 058 BPM Atrial Rate : 058 BPM P-R Int : 172 ms QRS Dur : 102 ms QT Int : 410 ms P-R-T Axes : 054 045 109 degrees QTc Int : 402 ms Sinus bradycardia Nonspecific ST and T wave abnormality Abnormal ECG When compared with ECG of 18-JAN-2022 11:01, Vent. rate has decreased BY 37 BPM Nonspecific T wave abnormality has replaced inverted T waves in Inferior leads Nonspecific T wave abnormality has replaced inverted T waves in Lateral leads Referred By: Luis Sosa Electronically Signed By:TUNG WILEY MD
--- NOTE | 2022-01-18 11:58 | HO.CARDIVERS ---
Cardioversion Procedure Note Cardioversion Date of Procedure: Today Ordering Provider: Myself Performing Provider: Myself Indication for Procedure: Recurrent and persistent atrial fibrillation/flutter Pre-Op Diagnosis: Same Post-Op Diagnosis: Normal sinus rhythm Performed with Transesophageal Echo: No History: See my last office note Consent: Verbal and Written consent was obtained from the patient before starting the procedure and confirming oral anticoagulation use. The patient was made aware of the risk of synchronized cardioversion including benefits and alternatives Procedure: After consent obtained, cardioversion pads were attached in anteroposterior configuration and the patient was sedated by the anesthesia team. Once adequate sedation achieved, patient was delivered 200 joules of biphasic synchronized energy in anteroposterior configuration. Patient converted to sinus rhythm after a small pause. Complications: None Impression: Successful conversion to sinus rhythm Recommendations: 1. 12 lead EKG 2. Continue flecainide 150 mg b.i.d. along with Cardizem 3. Continue full oral anticoagulation 4. Continue CPAP therapy 5. Follow-up in the office after Holter monitor
--- NOTE | 2022-01-18 12:08 | HO.POSTANES ---
Post Anesthesia Evaluation Post Anesthesia Evaluation Vital Signs: Vital Signs Temp Pulse Resp BP Pulse Ox O2 Del Method 01/18/22 10:38 98 F 95 18 142/79 H 99 Room Air Mental Status: Awake Pain Control: Satisfactory Nausea/Vomiting: None Hydration: Adequate Anesthesia-Related Issues: No Anes. Related Issues
[2022-01-18] MEDS: Flecainide Acetate 50 MG TABLET 150 MG PO (12:17)
== END 2022-01-18 13:15 | disposition home or self-care (01) ==
PROVIDERS: PCP Internal Medicine; Visit Provider Internal Medicine Cardiovascular Disease
PROC: 5A2204Z Restoration of Cardiac Rhythm, Single (ICD-10-PCS; principal; 2022-01-18 11:30)
DX: I48.19 Other persistent atrial fibrillation (principal); Z79.01 Long term (current) use of anticoagulants; I50.30 Unspecified diastolic (congestive) heart failure; I11.0 Hypertensive heart disease with heart failure; I27.20 Pulmonary hypertension, unspecified; G47.33 Obstructive sleep apnea (adult) (pediatric); Z99.89 Dependence on other enabling machines and devices
CPT/HCPCS: 92960; 93005; J0171; J0461

== ENCOUNTER → 2022-02-08 13:33 | Day surgery (SDC) | payer BC, SELFPAY ==
[2022-02-02 11:03] VITALS: BMI 32.4
--- NOTE | 2022-02-07 10:54 | P.CONAN_ITS ---
HPI - Anesthesia Eval Consult details Narrative: 71yo F for Cardioversion Xarelto for afib PMFSH Active Problems Active Problems: All Active Problems (Updated 02/01/22 @ 16:12 by Cary Ayoub RN) Abnormal PFTs (pulmonary function tests) (Acute) Paroxysmal atrial fibrillation (Acute) VANESSA on CPAP (Acute) Pulmonary hypertension (Acute) (HFpEF) heart failure with preserved ejection fraction (Acute) Diastolic dysfunction (Acute) Mitral regurgitation (Acute) HTN (hypertension) (Acute) Obesity (Acute) Past Medical History Medical History (HFpEF) heart failure with preserved ejection fraction Abnormal PFTs (pulmonary function tests) Diastolic dysfunction HTN (hypertension) Mitral regurgitation Obesity VANESSA on CPAP Paroxysmal atrial fibrillation Persistent atrial fibrillation Persistent atrial fibrillation Pulmonary hypertension Sinus bradycardia Family History Family History Father No problems noted. Mother CHF (congestive heart failure) CVD (cardiovascular disease) Family history of problems with anesthesia: No Surgical History Surgical History History of radiofrequency ablation (RFA) procedure for cardiac arrhythmia (~2017) History of Problems with Anesthesia: No Social History Social History Are you a primary interior plant caretaker to a significant other at home: No Do you presently have visiting nurse or other home services: No Alcohol intake: current Alcohol intake frequency: holidays/special occasions only Patient Tobacco Use Status: Never used Tobacco Meds Allergies Allergy/AdvReac Type Severity Reaction Status Date / Time eliquis Allergy Severe swelling Uncoded 11/28/21 08:44 Home Medications Medication Instructions Recorded Confirmed Last Taken Type losartan 25 mg tablet 25 mg PO DAILY 12/30/19 02/01/22 01/18/22 History multivitamin 1 tab PO DAILY 12/30/19 02/01/22 Unknown History zolpidem 10 mg tablet 10 mg PO BEDTIME PRN Sleep 12/30/19 02/01/22 Unknown History fluticasone 250 mcg-salmeterol 50 1 inh inhalation DAILY 02/02/20 02/01/22 Unknown History mcg/dose blistr powdr for inhalation fluticasone propionate 50 1 spray intranasal DAILY 02/02/20 02/01/22 Unknown History mcg/actuation nasal spray,suspension diltiazem HCl 120 mg 120 mg PO DAILY 07/13/21 02/01/22 01/24/22 History capsule,extended release 24 hr ibuprofen 800 mg tablet 800 mg PO BID PRN Pain 11/28/21 02/01/22 01/16/22 History furosemide 40 mg tablet 40 mg PO DAILY 01/02/22 02/01/22 Unknown History levothyroxine 112 mcg tablet 112 mcg PO DAILY 01/02/22 02/01/22 01/18/22 History empagliflozin 10 mg tablet 1 tab PO DAILY 01/18/22 02/01/22 01/18/22 History (Jardiance) Exam Exam Date and Time: February 07, 2022 1054 Height,Weight and Vital Signs: Height 5 ft 9 in Weight 99.7 kg Narrative Narrative: EKG 12/2021 Vent. Rate : 058 BPM ? ? Atrial Rate : 058 BPM ?? P-R Int : 172 ms? QRS Dur : 102 ms ? ? QT Int : 410 ms ? ? ? P-R-T Axes : 054 045 109 degrees ?? QTc Int : 402 ms ? Sinus bradycardia Nonspecific ST and T wave abnormality Abnormal ECG When compared with ECG of 18-JAN-2022 11:01, Vent. rate has decreased BY? 37 BPM Nonspecific T wave abnormality has replaced inverted T waves in Inferior leads Nonspecific T wave abnormality has replaced inverted T waves in Lateral leads ECHO 10/2021 Conclusions: - 1. Normal LV systolic function with grade 3 diastolic? dysfunction? 2. Mildly dilated left atrium? 3. Mild mitral regurgitation ? 4. [id number] tricuspid regurgitation? 5. [id number] elevation of right ventricular systolic? ? ? pressure with normal right atrial pressures? 6. No gross pericardial effusion ? ? ? Assessment and Plan Assessment Anesthesia Assessment: Chart Reviewed Final Anesthetic Review Family History of Problems with Anesthesia: No History of Problems with Anesthesia: No
--- NOTE | 2022-02-08 13:54 | ECG_ITS ---
Test Reason : Pre-Op Blood Pressure : / mmHG Vent. Rate : 062 BPM Atrial Rate : 062 BPM P-R Int : 174 ms QRS Dur : 102 ms QT Int : 414 ms P-R-T Axes : 058 047 076 degrees QTc Int : 420 ms Normal sinus rhythm Normal ECG When compared with ECG of 18-JAN-2022 12:04, Nonspecific T wave abnormality, improved in Anterolateral leads Referred By: Luis Sosa Electronically Signed By:RUPERTO MADRID
--- NOTE | 2022-02-08 14:17 | PC.NURSE ---
pt ekg showed nsr per dr coello d/c home and conts meds pt aware nad
== END ==
PROVIDERS: PCP Internal Medicine; Visit Provider Internal Medicine Cardiovascular Disease
DX: I48.0 Paroxysmal atrial fibrillation (principal); Z53.8 Procedure and treatment not carried out for other reasons; Z79.01 Long term (current) use of anticoagulants
CPT/HCPCS: 93005

== ENCOUNTER → 2022-02-21 10:41 | Outpatient (REF) | payer BC, SELFPAY ==
--- NOTE | 2022-02-21 10:44 | HM_ITS ---
Conclusion: 1. Patient was monitored for total period of 3 days 2. Baseline was normal sinus with average heart rate 61 beats per minute 3. Frequent sinus bradycardia with 53% of time heart rate below 60 beats per minute 4. Rare PACs noted 5. No episodes of atrial fibrillation noted 6. No significant pauses greater than 2.5 seconds noted 7. Patient reported event correlated with sinus rhythm MTDD
== END ==
LOC: HO.CARD 10:41
PROVIDERS: PCP Internal Medicine; Visit Provider Internal Medicine Cardiovascular Disease
DX: I48.0 Paroxysmal atrial fibrillation (principal); I50.32 Chronic diastolic (congestive) heart failure
CPT/HCPCS: 93242

== ENCOUNTER 2022-02-28 14:36 | Outpatient (REF) | payer BC, SELFPAY ==
[2022-02-28 15:31] LABS: MANUAL DIFF FLAG NO
[2022-02-28 16:11] LABS: Basophils Percent Auto 0.3 % (0-2); Eosinophils Absolute Auto 0.1 X10*3/uL (0.0-0.4); Eosinophils Percent Auto 0.9 % (0-4); Hematocrit 41.5 % (37.0-47.0); Hemoglobin 13.1 g/dl (12.0-16.0); Imm Gran Abs Auto 0.03 X10*3/uL (0.00-0.03); Imm Gran Pct Auto 0.5 % (0.0-0.4); Lymphocytes Absolute Auto 1.3 X10*3/uL (1.2-4.9); Lymphocytes Percent Auto 21.7 % (20-40); Mean Corpuscular HGB Conc 31.6 g/dl (31.0-35.0); Mean Corpuscular Hemoglobin 28.2 pg (27.0-33.0); Mean Corpuscular Volume 89.4 fL (80.0-98.0); Mean Platelet Volume 10.2 fL (9.4-12.3); Monocytes Absolute Auto 0.6 X10*3/uL (0.1-1.2); Monocytes Percent Auto 10.8 % (2-11); Neutrophils Absolute Auto 3.8 x10*3/uL (2.0-8.3); Neutrophils Percent Auto 65.8 % (45-73); Platelet Count 220 X10*3/uL (160-400); Red Blood Count 4.64 X10*6/uL (4.20-5.50); Red Cell Distribution Width 15.1 % (11.0-16.0); White Blood Count 5.8 X10*3/uL (4.8-10.8)
[2022-02-28 16:33] LABS: Alanine Aminotransferase 35 U/L (0-31); Albumin Level 4.3 g/dL (3.5-5.0); Alkaline Phosphatase 85 U/L (39-117); Anion Gap 10 (12-20); Aspartate Amino Transferase 29 U/L (5-31); Blood Urea Nitrogen 23 mg/dL (9-16); Calcium 9.5 mg/dL (8.4-10.2); Carbon Dioxide 27 mmol/L (22-29); Chloride 107 mmol/L (96-108); Estimated Glomerular Filt Rate 33; Glucose Random 86 mg/dL (60-115); Potassium 4.3 mmol/L (3.3-5.1); Sodium 140 mmol/L (135-145); Total Protein 6.8 g/dL (6.5-8.0)
[2022-02-28 16:50] LABS: TSH reflex Free T4 0.98 uIU/mL (0.32-4.0)
== END 2022-02-28 14:37 | disposition home or self-care (01) ==
LOC: HO.LAB 14:36
PROVIDERS: PCP Physician Assistant Medical; Visit Provider Nurse Practitioner Family
DX: I48.0 Paroxysmal atrial fibrillation (principal); I11.0 Hypertensive heart disease with heart failure; I50.32 Chronic diastolic (congestive) heart failure; I27.20 Pulmonary hypertension, unspecified; I34.0 Nonrheumatic mitral (valve) insufficiency; Z99.89 Dependence on other enabling machines and devices
CPT/HCPCS: 36415; 80053; 84443; 85025

== ENCOUNTER → 2022-05-23 14:28 | Outpatient (BNVA) | payer BC, SELFPAY | PROVIDERS: PCP Physician Assistant Medical; Visit Provider Nurse Practitioner Family | DX: I48.0 Paroxysmal atrial fibrillation (principal); I50.32 Chronic diastolic (congestive) heart failure; I27.20 Pulmonary hypertension, unspecified | CPT/HCPCS: 93005 ==

== ENCOUNTER 2022-05-30 08:16 | Outpatient (REF) | payer BC, SELFPAY ==
[2022-05-30 09:54] LABS: Alanine Aminotransferase 33 U/L (0-31); Albumin Level 4.1 g/dL (3.5-5.0); Alkaline Phosphatase 89 U/L (39-117); Anion Gap 14 (12-20); Aspartate Amino Transferase 29 U/L (5-31); Bilirubin Total 1.2 mg/dL (0.0-1.0); Blood Urea Nitrogen 27 mg/dL (9-16); Calcium 9.1 mg/dL (8.4-10.2); Carbon Dioxide 23 mmol/L (22-29); Chloride 107 mmol/L (96-108); Estimated Glomerular Filt Rate 30; Glucose Random 108 mg/dL (60-115); Potassium 3.6 mmol/L (3.3-5.1); Sodium 140 mmol/L (135-145); Total Protein 6.4 g/dL (6.5-8.0)
== END 2022-05-30 08:17 | disposition home or self-care (01) ==
LOC: HO.LAB 08:16
PROVIDERS: Absent Provider Nurse Practitioner Family; PCP Physician Assistant Medical; Visit Provider Hospitalist
DX: I48.0 Paroxysmal atrial fibrillation (principal); I27.20 Pulmonary hypertension, unspecified; G47.33 Obstructive sleep apnea (adult) (pediatric); I50.32 Chronic diastolic (congestive) heart failure; R94.2 Abnormal results of pulmonary function studies; Z99.89 Dependence on other enabling machines and devices
CPT/HCPCS: 36415; 80053

== ENCOUNTER 2022-06-02 12:48 | Day surgery (SDC) | payer BC, SELFPAY ==
--- NOTE | 2022-06-02 13:04 | MHC.SHP ---
Pre-Procedural Eval Section A Date of Service: 06/02/22 The patient is an INPATIENT: No Changes since office visit: Yes Patient answered all questions; No Cold of Flu in the past 2 weeks, No New Medical Problems and No Changes in Medication The History & Physical has been completed within 30 days and I have reviewed it.: Yes Section B Chief Complaint: Paroxysmal atrial fibrillation Allergies: Allergies Allergy/AdvReac Type Severity Reaction Status Date / Time eliquis Allergy Severe swelling Uncoded 05/30/22 08:30 Plan I have reviewed the history and physical and performed a pertinent physical examination on my patient. No changes have occurred unless specified. Time Spent With Patient Time: Total time managing care of this patient today ____ minutes.
[2022-06-02 13:10] VITALS: BMI 31.7
[2022-06-02 13:12] VITALS: BP 142/83; PULSE 93; RESP 18; TEMP 36.8; O2SAT 99
--- NOTE | 2022-06-02 13:15 | HO.ANESPROP2 ---
[facility] Active Problems Active Problems: All Active Problems (Updated 02/01/22 @ 16:12 by Cary Ayoub RN) Abnormal PFTs (pulmonary function tests) (Acute) Paroxysmal atrial fibrillation (Acute) VANESSA on CPAP (Acute) Pulmonary hypertension (Acute) (HFpEF) heart failure with preserved ejection fraction (Acute) Diastolic dysfunction (Acute) Mitral regurgitation (Acute) HTN (hypertension) (Acute) Obesity (Acute) Past Medical History Medical History (HFpEF) heart failure with preserved ejection fraction Abnormal PFTs (pulmonary function tests) Diastolic dysfunction HTN (hypertension) Mitral regurgitation Obesity VANESSA on CPAP Paroxysmal atrial fibrillation Persistent atrial fibrillation Pulmonary hypertension Sinus bradycardia Family History Family History Father No problems noted. Mother CHF (congestive heart failure) CVD (cardiovascular disease) Family history of problems with anesthesia: No Surgical History Surgical History History of radiofrequency ablation (RFA) procedure for cardiac arrhythmia (~2016) History of Problems with Anesthesia: No Social History Social History Are you a primary daycare director to a significant other at home: No Do you presently have visiting nurse or other home services: No Alcohol intake: current Alcohol intake frequency: does not drink Patient Tobacco Use Status: Never used Tobacco Advance Directives: No Advance Directives Information Provided: Yes Meds Allergies Allergy/AdvReac Type Severity Reaction Status Date / Time eliquis Allergy Severe swelling Uncoded 05/30/22 08:30 Home Medications Medication Instructions Recorded Confirmed Last Taken Type losartan 25 mg tablet 25 mg PO DAILY 12/30/19 05/23/22 01/18/22 History multivitamin 1 tab PO DAILY 12/30/19 05/23/22 Unknown History zolpidem 10 mg tablet 10 mg PO BEDTIME PRN Sleep 12/30/19 05/23/22 Unknown History fluticasone 250 mcg-salmeterol 50 1 inh inhalation DAILY 02/02/20 05/23/22 Unknown History mcg/dose blistr powdr for inhalation fluticasone propionate 50 1 spray intranasal DAILY 02/02/20 05/23/22 Unknown History mcg/actuation nasal spray,suspension diltiazem HCl 120 mg 120 mg PO DAILY 07/13/21 05/23/22 01/24/22 History capsule,extended release 24 hr ibuprofen 800 mg tablet 800 mg PO BID PRN Pain 11/28/21 05/23/22 01/16/22 History furosemide 40 mg tablet 40 mg PO DAILY 01/02/22 05/23/22 Unknown History levothyroxine 112 mcg tablet 112 mcg PO DAILY 01/02/22 05/23/22 01/18/22 History CPAP (CPAP Machine/Device) 05/30/22 Unknown History diltiazem HCl 30 mg tablet 30 mg PO PRN 05/30/22 Unknown History Exam Exam Date and Time: June 02, 2022 131 Height,Weight and Vital Signs: Height 5 ft 9 in Weight 97.522 kg Airway Mallampati Class: II TM Dist: >3cm Neck ROM: Limited Heart: irreg Lungs: cta Assessment and Plan Assessment Anesthesia Assessment: Anesthesia Plan Discussed and Chart Reviewed Final Anesthetic Review Family History of Problems with Anesthesia: No History of Problems with Anesthesia: No NPO: Yes ASA Class: III Final Preanesthetic Review: No Changes in Pt Med Stat, Meds/Allgs Chart Reviewed, Consent Obtained/Reviewed and Anes Risks/Benef Reviewed Patient Risk: Intermediate Procedure Risk: Low Anesthetic Plan Anesthetic Plan: MAC: Disposition: Standard PACU
--- NOTE | 2022-06-02 14:19 | ECG_ITS ---
Test Reason : POST CARDIOVERSION Blood Pressure : / mmHG Vent. Rate : 054 BPM Atrial Rate : 054 BPM P-R Int : 170 ms QRS Dur : 092 ms QT Int : 446 ms P-R-T Axes : 062 042 062 degrees QTc Int : 422 ms Sinus bradycardia Otherwise normal ECG When compared with ECG of 08-FEB-2022 14:06, No significant change was found Referred By: Luis Sosa Electronically Signed By:Vinh Jennings
[2022-06-02 14:20] VITALS: BP 111/56; PULSE 56; RESP 16; TEMP 36.6; O2SAT 98
--- NOTE | 2022-06-02 14:20 | HO.CARDIVERS ---
Cardioversion Procedure Note Cardioversion Date of Procedure: Today Ordering Provider: Myself Performing Provider: Myself Indication for Procedure: Recurrent persistent symptomatic atrial fibrillation Pre-Op Diagnosis: Same Post-Op Diagnosis: Sinus rhythm Performed with Transesophageal Echo: No History: See the last office note Consent: Verbal and Written consent was obtained from the patient before starting and after confirming oral anticoagulation use. The patient was made aware of the risk of synchronized cardioversion including benefits, risks and alternatives Procedure: After consent obtained, cardioversion pads were attached in anteroposterior configuration and the patient was sedated by the anesthesia team. Once adequate sedation achieved, patient was delivered 200 joules of biphasic synchronized energy in anteroposterior configuration Complications: None Impression: Successful conversion to sinus rhythm Recommendations: 1. 12 lead EKG 2. Continue full oral anticoagulation 3. Continue amiodarone and Cardizem 4. Will refer for 2nd opinion for consideration of epicardial ablation
[2022-06-02 14:25] VITALS: BP 113/55; PULSE 54; RESP 18; O2SAT 99
[2022-06-02 14:30] VITALS: BP 104/59; PULSE 58; RESP 16; O2SAT 96
[2022-06-02 14:35] VITALS: BP 107/70; PULSE 57; RESP 16; TEMP 36.6; O2SAT 98
== END 2022-06-02 15:10 | disposition home or self-care (01) ==
PROVIDERS: PCP Physician Assistant Medical; Visit Provider Internal Medicine Cardiovascular Disease
PROC: 5A2204Z Restoration of Cardiac Rhythm, Single (ICD-10-PCS; principal; 2022-06-02 14:00)
DX: I48.19 Other persistent atrial fibrillation (principal); I48.0 Paroxysmal atrial fibrillation; I11.0 Hypertensive heart disease with heart failure; I50.32 Chronic diastolic (congestive) heart failure; I27.20 Pulmonary hypertension, unspecified; I34.0 Nonrheumatic mitral (valve) insufficiency; G47.33 Obstructive sleep apnea (adult) (pediatric); E66.9 Obesity, unspecified; Z68.32 Body mass index [BMI] 32.0-32.9, adult; Z99.89 Dependence on other enabling machines and devices; Z79.899 Other long term (current) drug therapy; Z79.01 Long term (current) use of anticoagulants; Z79.51 Long term (current) use of inhaled steroids; Z79.1 Long term (current) use of non-steroidal anti-inflammatories (NSAID); Z88.8 Allergy status to other drugs, medicaments and biological substances
CPT/HCPCS: 92960; 93005

== ENCOUNTER → 2022-06-08 09:04 | Outpatient (REF) | payer BC, SELFPAY ==
--- NOTE | 2022-06-08 09:06 | CA_ITS ---
Transthoracic Echocardiogram Patient (Last, First, Middle): Aysha Fabian, Gender: Female Date of : 1950 Age: 71 Procedure Date: 06/08/2022 Procedure Type: Transthoracic Echocardiogram Location: OP Height: 175.26 cm Weight: 97.52 kg BSA: 2.13 m2 Heart Rate: bpm BP: 158 / 90 mmHg Real Estate Professor: KAUSHAL Referring MD: Luis Sosa MD Utility Sales And Service Manager: Luis Sosa MD Symptoms: I50.32 - Chronic diastolic (congestive) heart failure Study Quality: Adequate ECG Rhythm: Sinus Conclusions: - 1. Normal LV ejection fraction at 65 70% with grade 3 diastolic dysfunction 2. At least moderately dilated left atrium 3. Rdlt-lu-pwjmxvsy mitral and tricuspid regurgitation 4. Mild aortic regurgitation 5. Moderate to severe elevation right ventricular systolic pressure 6. No gross pericardial effusion Findings Left Ventricle Normal left ventricular size, thickness, and systolic function. The visually estimated ejection fraction is between 65-70%. Spectral Doppler is indicative of a restrictive filling pattern. E/E prime ratio is >15, consistent with elevated filling pressures. Evidence suggests grade III (severe) diastolic dysfunction. Peak GLS is -20.5%, within normal limits. Right Ventricle Normal right ventricular cavity size and systolic function. Atria The left atrium is moderately dilated. There is no evidence of interatrial shunt. The right atrium is mildly dilated. Aortic Valve Normal aortic valve structure and function. There is no aortic valve stenosis. There is mild aortic valve regurgitation. Mitral Valve There is mild anterior and posterior mitral leaflet thickening. There is mild to moderate mitral valve regurgitation. There is no mitral valve stenosis. Pulmonic Valve The pulmonic valve is likely normal. Tricuspid Valve Normal tricuspid valve structure. There is mild to moderate tricuspid valve regurgitation. Normal right atrial pressure. Moderate to severe pulmonary hypertension is present. Great Vessels All visible segments of the aorta are normal in size. The pulmonary artery was not well visualized. Venous The inferior vena cava is mildly dilated and collapses greater than 50% with inspiration. Pericardium/Pleural There is no evidence of pericardial effusion. Prior Study Comparison Changes noted compared to prior study dated: 11/11/2021. RV systolic pressures are increased Measurements 2D Linear Measurements IVSd: 0.98 0.6-0.9/0.6-1.0 cm LVIDd: 5.47 3.9-5.3/4.2-5.9 cm LVIDd Index: 2.57 2.4-3.2/2.2-3.1 cm/m2 LVIDs: 3.51 2.0-3.6 cm LVPWd: 1.17 0.7-1.1 cm LA Diam: 4.00 2.7-3.8/3.0-4.0 cm LAIDs Index: 1.88 1.5-2.3 cm/m2 LV Mass: 289.93 67-162/88-224 g LV Mass Index: 136.12 43-95/49-115 g/m2 LVOT Diam: 2.00 3.0+(-)1.3 cm 2D Systolic Function EF 4C: 66.90 >55% EF 2C: 68.10 >55% EF BiP: 65.80 >55% Mitral Valve MV Pk E: 1.45 MV PK A: 0.37 MV Decel Time: 204.00 E/A: 4.00 E'Lateral: 8.27 E'Medial: 7.51 E/E' Med: 19.30 E/E' Lat: 17.50 PHT: 60.00 MVA PHT: 3.67 Decel Nuckolls: 7.15 MR Vol - PW Dopp: 49.25 MR VTI: 1.97 MR ERO: 25.00 MR Alias Iglesia: 0.40 MR RAD: 0.70 Aortic Valve AoV Pk Iglesia: 1.30 AoV Mn Iglesia: 1.02 AoV VTI: 0.37 AoV Pk Grad: 7.00 Aov Mn Grad: 4.00 ANTONI Cont.VTI: 2.24 LVOT LVOT Pk Iglesia: 1.09 LVOT Mn Iglesia: 0.76 LVOT VTI: 0.27 LVOT Pk Grad: 5.00 LVOT Mn Grad: 3.00 LVOT Diam: 2.00 LVOT Area: 3.14 Diastolic Function MV Pk E: 1.45 MV Pk A: 0.37 E/A: 4.00 E'Medial: 7.51 E/E' Med: 19.30 E' Laterial: 8.27 E/E' Lat: 17.50 Right Ventricle TAPSE (mm): 24.40 TVS' Iglesia: 11.20 Tricuspid Valve TR Pk Iglesia: 3.79 TR Pk Grad: 57.00 RA Press: 3.00 RVSP: 60.00 Great Vessels Aorta Sinus of Valsalva: 3.35 2.0-3.[address] Ridge: 2.48 1.7-3.4 cm Ao Asc: 3.10 2.1-3.4 cm Ao Arch: 2.90 Updated in Other Vendor System with Status of Final Luis Sosa MD electronically signed on 06/08/2022 5:59:11 PM with status of Final
== END ==
LOC: HO.CARD 09:04
PROVIDERS: PCP Physician Assistant Medical; Visit Provider Internal Medicine Cardiovascular Disease
DX: I50.32 Chronic diastolic (congestive) heart failure (principal)
CPT/HCPCS: 93306; 93356

== ENCOUNTER 2022-07-07 10:02 | Outpatient (REF) | payer BC, SELFPAY ==
[2022-07-07 10:57] LABS: Cholesterol 174 mg/dL; HDL Cholesterol 73 mg/dL; LDL Cholesterol Calculated 91 mg/dl; Triglycerides 54 mg/dL
[2022-07-07 11:15] LABS: TSH reflex Free T4 1.11 uIU/mL (0.32-4.0)
== END 2022-07-07 10:03 | disposition home or self-care (01) ==
LOC: HO.LAB 10:02
PROVIDERS: Absent Provider Physician Assistant Medical; PCP Physician Assistant Medical; Visit Provider Internal Medicine Cardiovascular Disease
DX: M25.562 Pain in left knee (principal); E03.9 Hypothyroidism, unspecified; I48.91 Unspecified atrial fibrillation
CPT/HCPCS: 36415; 80061; 84443

== ENCOUNTER 2022-07-11 13:17 | Outpatient (REF) | payer BC, SELFPAY ==
[2022-07-11 13:38] LABS: MANUAL DIFF FLAG NO
[2022-07-11 14:26] LABS: INTERNATIONAL NORM RATIO 1.5 (0.9-1.1); Prothrombin Time 17.1 SEC (10.0-13.1)
[2022-07-11 14:28] LABS: Basophils Percent Auto 0.2 % (0-2); Eosinophils Absolute Auto 0.1 X10*3/uL (0.0-0.4); Eosinophils Percent Auto 2.1 % (0-4); Hematocrit 36.6 % (37.0-47.0); Hemoglobin 11.8 g/dl (12.0-16.0); Imm Gran Abs Auto 0.02 X10*3/uL (0.00-0.03); Imm Gran Pct Auto 0.3 % (0.0-0.4); Lymphocytes Absolute Auto 1.4 X10*3/uL (1.2-4.9); Lymphocytes Percent Auto 21.8 % (20-40); Mean Corpuscular HGB Conc 32.2 g/dl (31.0-35.0); Mean Corpuscular Hemoglobin 29.2 pg (27.0-33.0); Mean Corpuscular Volume 90.6 fL (80.0-98.0); Mean Platelet Volume 10.5 fL (9.4-12.3); Monocytes Absolute Auto 0.7 X10*3/uL (0.1-1.2); Monocytes Percent Auto 11.8 % (2-11); Neutrophils Percent Auto 63.8 % (45-73); Platelet Count 202 X10*3/uL (160-400); Red Blood Count 4.04 X10*6/uL (4.20-5.50); White Blood Count 6.3 X10*3/uL (4.8-10.8)
[2022-07-11 16:56] LABS: Anion Gap 13 (12-20); Blood Urea Nitrogen 30 mg/dL (9-16); Calcium 9.2 mg/dL (8.4-10.2); Carbon Dioxide 22 mmol/L (22-29); Chloride 111 mmol/L (96-108); Estimated Glomerular Filt Rate 28; Glucose Random 93 mg/dL (60-115); Potassium 4.2 mmol/L (3.3-5.1); Sodium 142 mmol/L (135-145)
== END 2022-07-11 13:18 | disposition home or self-care (01) ==
LOC: HO.LAB 13:17
PROVIDERS: Visit Provider Internal Medicine Cardiovascular Disease
DX: I27.20 Pulmonary hypertension, unspecified (principal); I48.0 Paroxysmal atrial fibrillation; I10 Essential (primary) hypertension
CPT/HCPCS: 36415; 80048; 85025; 85610

== ENCOUNTER 2022-08-02 11:27 | Day surgery (SDC) | payer BC, SELFPAY ==
--- NOTE | 2022-08-01 09:07 | HO.ANESPROP2 ---
HPI - Anesthesia Eval Consult details Narrative: 71yo F for Transesophageal Echocardiogram s/p cardioversion 05/2022 with [facility] Active Problems Active Problems: All Active Problems (Updated 02/01/22 @ 16:12 by Cary Ayoub RN) Abnormal PFTs (pulmonary function tests) (Acute) Paroxysmal atrial fibrillation (Acute) VANESSA on CPAP (Acute) Pulmonary hypertension (Acute) (HFpEF) heart failure with preserved ejection fraction (Acute) Diastolic dysfunction (Acute) Mitral regurgitation (Acute) HTN (hypertension) (Acute) Obesity (Acute) Past Medical History Medical History (HFpEF) heart failure with preserved ejection fraction Abnormal PFTs (pulmonary function tests) Diastolic dysfunction HTN (hypertension) Mitral regurgitation Obesity VANESSA on CPAP Paroxysmal atrial fibrillation Persistent atrial fibrillation Pulmonary hypertension Sinus bradycardia Family History Family History Father No problems noted. Mother CHF (congestive heart failure) CVD (cardiovascular disease) Family history of problems with anesthesia: No Surgical History Surgical History History of radiofrequency ablation (RFA) procedure for cardiac arrhythmia (~2016) History of Problems with Anesthesia: No Social History Social History Are you a primary care management coordinator to a significant other at home: No Do you presently have visiting nurse or other home services: No Alcohol intake: current Alcohol intake frequency: holidays/special occasions only Patient Tobacco Use Status: Never used Tobacco Second Hand Smoke Exposure: No Meds Allergies Allergy/AdvReac Type Severity Reaction Status Date / Time eliquis Allergy Severe swelling Uncoded 05/30/22 08:30 DOFETILDE Allergy Difficulty Uncoded 06/02/22 13:39 Breathing Home Medications Medication Instructions Recorded Confirmed Last Taken Type losartan 25 mg tablet 25 mg PO DAILY 12/30/19 08/07/22 08/02/22 History multivitamin 1 tab PO DAILY 12/30/19 08/07/22 Unknown History zolpidem 10 mg tablet 10 mg PO BEDTIME PRN Sleep 12/30/19 08/07/22 Unknown History fluticasone 250 mcg-salmeterol 50 1 inh inhalation DAILY 02/02/20 08/07/2208/02/23 History mcg/dose blistr powdr for inhalation fluticasone propionate 50 1 spray intranasal DAILY 02/02/20 08/07/22 Unknown History mcg/actuation nasal spray,suspension diltiazem HCl 120 mg 120 mg PO DAILY 07/13/21 08/07/22 08/02/22 History capsule,extended release 24 hr ibuprofen 800 mg tablet 800 mg PO BID PRN Pain 11/28/21 08/07/22 01/16/22 History levothyroxine 112 mcg tablet 112 mcg PO DAILY 01/02/22 08/07/22 08/02/22 History CPAP (CPAP Machine/Device) 05/30/22 08/07/22 Unknown History diltiazem HCl 30 mg tablet 30 mg PO PRN 05/30/22 08/07/22 Unknown History empagliflozin 10 mg tablet 10 mg PO DAILY 06/02/22 08/07/22 08/02/22 History (Jardiance) furosemide 40 mg tablet 120 mg PO DAILY 08/07/22 08/07/22 Unknown History Exam Exam Date and Time: August 01, 2022 0907 Pertinent Lab Results Pertinent Lab Results: Laboratory Tests 07/11/22 07/11/22 13:37 13:37 WBC 6.3 Hgb 11.8 L Hct 36.6 L Plt Count 202 Sodium 142 Potassium 4.2 Chloride 111 H Carbon Dioxide 22 BUN 30 H Creatinine 1.78 H Narrative Narrative: EKG 05/2022 Vent. Rate : 054 BPM ? ? Atrial Rate : 054 BPM ?? P-R Int : 170 ms? QRS Dur : 092 ms ? ? QT Int : 446 ms ? ? ? P-R-T Axes : 062 042 062 degrees ?? QTc Int : 422 ms ? Sinus bradycardia Otherwise normal ECG When compared with ECG of 08-FEB-2022 14:06, No significant change was found ECHO 05/2022 Conclusions: - 1. Normal LV ejection fraction at 65 70% with grade 3 diastolic dysfunction? 2. At least moderately dilated left atrium ? 3. [id number] mitral and tricuspid regurgitation ? 4. Mild aortic regurgitation ? 5. Moderate to severe elevation right ventricular systolic ? ? ? pressure ? 6. No gross pericardial effusion ? ?? Assessment and Plan Assessment Anesthesia Assessment: Chart Reviewed Final Anesthetic Review Family History of Problems with Anesthesia: No History of Problems with Anesthesia: No
[2022-08-02] VITALS (8 sets, daily range): BP systolic 106–141; BP diastolic 46–74; PULSE 53–60; RESP 14–18; TEMP 36.1–36.3; O2SAT 95–99; BMI 32.7
--- NOTE | 2022-08-02 12:21 | CA_ITS ---
Transesophageal Echocardiogram Patient (Last, First, Middle): Aysha Fabian, Gender: Female Date of : 1950 Age: 71 Procedure Date: 08/02/2022 Procedure Type: Transesophageal Echocardiogram Location: OP Height: 165.1 cm Weight: kg Dermatopathologist: JEANINE Referring MD: Luis Sosa MD Record Pressman: Luis Sosa MD Symptoms: Evaluate for significant mitral regurgitation Conclusion: ??? 1. Normal LV systolic function with at least grade 2 diastolic dysfunction next 2. Biatrial enlargement, left greater than right 3. Moderate mitral regurgitation 4. No intracardiac thrombi or masses or vegetations 5. No intracardiac shunting 6. No gross pericardial effusion Findings Procedure Information Consent was obtained prior to the procedure. Pre ROSEANN oral cavity was checked and revealed mild overcrowding. The adult 3D probe was passed with no difficulty. Left Ventricle Normal left ventricular size, thickness, and systolic function. The visually estimated ejection fraction is between 60-65%. Spectral Doppler is indicative of a pseudonormal filling pattern. Elevated left atrial and left ventricular end-diastolic pressures. E/E prime ratio is >15, consistent with elevated filling pressures. There is no evidence of a mass in the left ventricle. Right Ventricle Mildly increased right ventricular cavity size. There is low normal right ventricular systolic function. Atria The left atrium is moderately dilated. There is no evidence of interatrial shunt by color Doppler. There is no evidence of thrombus or mass in the left atrium. The left atrial appendage Leiden 5 multiple views. Then no significant clots or smoke formation seen in the left atrial appendage. The left upper, right upper and right lower pulmonary vein were draining normally into the left atrium. The right atrium is moderately dilated. There is no evidence of thrombus or mass in the right atrium. IVC and SVC draining normally into the right atrium. Aortic Valve Normal aortic valve structure and function. There is no aortic valve stenosis. There is no evidence of a mass on the aortic valve. There is no aortic valve regurgitation. Mitral Valve There is mild anterior and posterior mitral leaflet thickening. There is moderate mitral valve regurgitation. There is no mitral valve stenosis. There is no mass noted on the mitral valve. calculated effective orifice area of 0.17 centimeters sq, regurgitant volume of about 20 mL more consistent with moderate MR. Pulmonic Valve Normal pulmonic valve structure and function. There is no mass noted on the pulmonic valve. Tricuspid Valve Normal tricuspid valve structure. There is moderate tricuspid valve regurgitation. There is no evidence of a mass on the tricuspid valve. The right ventricular systolic pressure may be underestimated. Great Vessels All visible segments of the aorta are normal in size. The visualized portions of the pulmonary artery and branches are normal. Venous The inferior vena cava is normal in size. Pericardium/Pleural There is no evidence of pericardial effusion. Measurements Mitral Valve MR Vol - PW Dopp: 27.71 MR VTI: 1.63 MR ERO: 17.00 MR Alias Iglesia: 0.31 MR RAD: 0.70 Updated by Luis Sosa on 02:34 PM with Status of Final Luis Sosa MD electronically signed on 08/02/2022 2:34:43 PM with status of Final
--- NOTE | 2022-08-02 12:22 | MHC.SHP ---
Pre-Procedural Eval Section A Date of Service: 08/02/22 The patient is an INPATIENT: No Changes since office visit: Yes Patient answered all questions; No Cold of Flu in the past 2 weeks, No New Medical Problems and No Changes in Medication The History & Physical has been completed within 30 days and I have reviewed it.: Yes Section B Chief Complaint: Chronic diastolic (congestive) heart failure Allergies: Allergies Allergy/AdvReac Type Severity Reaction Status Date / Time eliquis Allergy Severe swelling Uncoded 05/30/22 08:30 DOFETILDE Allergy Difficulty Uncoded 06/02/22 13:39 Breathing Plan I have reviewed the history and physical and performed a pertinent physical examination on my patient. No changes have occurred unless specified. Time Spent With Patient Time: Total time managing care of this patient today ____ minutes.
--- NOTE | 2022-08-02 12:55 | HO.ANESPROP2 ---
HPI - Anesthesia Eval Consult details Narrative: for ROSEANN for Mitral valve regurg,severe diastolic dysfunction, CHF [place] H A class 3 PMFSH Active Problems Active Problems: All Active Problems (Updated 02/01/22 @ 16:12 by Cary Ayoub RN) Abnormal PFTs (pulmonary function tests) (Acute) Paroxysmal atrial fibrillation (Acute) VANESSA on CPAP (Acute) Pulmonary hypertension (Acute) (HFpEF) heart failure with preserved ejection fraction (Acute) Diastolic dysfunction (Acute) Mitral regurgitation (Acute) HTN (hypertension) (Acute) Obesity (Acute) Past Medical History Medical History (HFpEF) heart failure with preserved ejection fraction Abnormal PFTs (pulmonary function tests) Diastolic dysfunction HTN (hypertension) Mitral regurgitation Obesity VANESSA on CPAP Paroxysmal atrial fibrillation Persistent atrial fibrillation Pulmonary hypertension Sinus bradycardia Family History Family History Father No problems noted. Mother CHF (congestive heart failure) CVD (cardiovascular disease) Family history of problems with anesthesia: No Surgical History Surgical History History of radiofrequency ablation (RFA) procedure for cardiac arrhythmia (~2017) History of Problems with Anesthesia: No Social History Social History Are you a primary home care provider to a significant other at home: No Do you presently have visiting nurse or other home services: No Alcohol intake: current Alcohol intake frequency: holidays/special occasions only Patient Tobacco Use Status: Never used Tobacco Second Hand Smoke Exposure: No Use of substances other than those prescribed or required for medical reasons: No Are you DNR?: No Advance Directives: No Advance Directives Information Provided: Yes Advance Directives on File: No Meds Allergies Allergy/AdvReac Type Severity Reaction Status Date / Time eliquis Allergy Severe swelling Uncoded 05/30/22 08:30 DOFETILDE Allergy Difficulty Uncoded 06/02/22 13:39 Breathing Active Medications: Current Medications Lactated Ringer's (Lr) 1,000 mls @ 50 mls/hr IVCONT .Q20H ANDREA Sodium Chloride (0.9 % Sodium Chloride Flush 3 Ml Syringe) 3 ml IVFLUSH QSHIFT ANDREA Home Medications Medication Instructions Recorded Confirmed Last Taken Type losartan 25 mg tablet 25 mg PO DAILY 12/30/19 05/23/22 08/02/22 History multivitamin 1 tab PO DAILY 12/30/19 05/23/22 Unknown History zolpidem 10 mg tablet 10 mg PO BEDTIME PRN Sleep 12/30/19 05/23/22 Unknown History fluticasone 250 mcg-salmeterol 50 1 inh inhalation DAILY 02/02/20 05/23/22 08/02/22 History mcg/dose blistr powdr for inhalation fluticasone propionate 50 1 spray intranasal DAILY 02/02/20 05/23/22 Unknown History mcg/actuation nasal spray,suspension diltiazem HCl 120 mg 120 mg PO DAILY 07/13/21 05/23/22 08/02/22 History capsule,extended release 24 hr ibuprofen 800 mg tablet 800 mg PO BID PRN Pain 11/28/21 05/23/22 01/16/22 History furosemide 40 mg tablet 40 mg PO DAILY 01/02/22 05/23/22 Unknown History levothyroxine 112 mcg tablet 112 mcg PO DAILY 01/02/22 05/23/22 08/02/22 History CPAP (CPAP Machine/Device) 05/30/22 Unknown History diltiazem HCl 30 mg tablet 30 mg PO PRN 05/30/22 Unknown History empagliflozin 10 mg tablet 10 mg PO DAILY 06/02/22 06/02/22 08/02/22 History (Jardiance) Exam Exam Date and Time: August 02, 2022 1255 Height,Weight and Vital Signs: Height 5 ft 8 in Weight 97.522 kg Last Vital Signs Temp 97.4 F 08/02/22 12:04 Pulse 58 08/02/22 12:04 Resp 16 08/02/22 12:04 BP 141/68 H 08/02/22 12:04 Pulse Ox 99 08/02/22 12:04 O2 Del Method Room Air 08/02/22 12:04 Airway Mallampati Class: II TM Dist: >3cm Neck ROM: Full Loose/Missing/Broken Teeth: No Heart: rr nl S1S2 sinus bradycardia Lungs: cta Assessment and Plan Final Anesthetic Review Family History of Problems with Anesthesia: No History of Problems with Anesthesia: No NPO: Yes ASA Class: III Final Preanesthetic Review: No Changes in Pt Med Stat, Meds/Allgs Chart Reviewed, Consent Obtained/Reviewed and Anes Risks/Benef Reviewed Patient Risk: Intermediate Procedure Risk: Low Anesthetic Plan Anesthetic Plan: MAC: Disposition: Standard PACU
== END 2022-08-02 16:00 | disposition home or self-care (01) ==
PROVIDERS: PCP Physician Assistant Medical; Visit Provider Internal Medicine Cardiovascular Disease
PROC: (CPT 93312; principal; 2022-08-02 13:00)
DX: I11.0 Hypertensive heart disease with heart failure (principal); I50.32 Chronic diastolic (congestive) heart failure; I48.0 Paroxysmal atrial fibrillation; I48.19 Other persistent atrial fibrillation; I27.20 Pulmonary hypertension, unspecified; I34.0 Nonrheumatic mitral (valve) insufficiency; G47.33 Obstructive sleep apnea (adult) (pediatric); Z79.01 Long term (current) use of anticoagulants; Z79.1 Long term (current) use of non-steroidal anti-inflammatories (NSAID); Z79.899 Other long term (current) drug therapy; Z99.89 Dependence on other enabling machines and devices; Z88.8 Allergy status to other drugs, medicaments and biological substances
CPT/HCPCS: 93312; J2250

== ENCOUNTER → 2022-08-07 14:16 | Outpatient (BNVA) | payer BC, SELFPAY | PROVIDERS: PCP Physician Assistant Medical; Referring Provider Physician Assistant Medical; Visit Provider Internal Medicine Cardiovascular Disease | DX: I48.0 Paroxysmal atrial fibrillation (principal); I34.0 Nonrheumatic mitral (valve) insufficiency; I50.32 Chronic diastolic (congestive) heart failure | CPT/HCPCS: 93005 ==

== ENCOUNTER 2022-11-24 07:14 | Outpatient (REF) | payer BC, SELFPAY ==
--- NOTE | 2022-11-24 08:07 | PFT_ITS ---
Forced vital capacity 71%. FEV1 73%, and FEV1/FVC ratio is 78. [id number] 82% and MVV 87%. Post bronchodilator therapy, there is no significant change. Total lung capacity 77%. Residual volume 72%. Diffusion capacity 52%. CONCLUSION: Mild restrictive pulmonary disorder. No significant obstructive airway disorder. Diffusion capacity is decreased somewhat out of proportion to the other findings. This may be due to technical reason, due to pulmonary emphysema, or nonpulmonary causes. Clinical correlation recommended. MD RANDALL Walsh/MODL / [id number]
== END 2022-11-24 07:15 | disposition home or self-care (01) ==
LOC: HO.RESP 07:14
PROVIDERS: PCP Physician Assistant Medical; Visit Provider Hospitalist
DX: I27.20 Pulmonary hypertension, unspecified (principal)
CPT/HCPCS: 94010; 94727; 94729

== ENCOUNTER → 2022-11-24 08:07 | Outpatient (BNV) | payer BC, SELFPAY | PROVIDERS: PCP Physician Assistant Medical; Visit Provider Internal Medicine | DX: I27.20 Pulmonary hypertension, unspecified (principal) | CPT/HCPCS: 94060; 94727; 94729 ==

== ENCOUNTER 2022-11-27 08:35 | Outpatient (AMB) | payer BC, SELFPAY ==
[2022-11-27 08:40] VITALS: BP 142/86; PULSE 56; BMI 33.9
--- NOTE | 2022-11-27 08:40 | MHC.OFFVIS ---
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 Required: No Allergies eliquis Allergy (Severe, Uncoded 05/30/22 08:30) swelling DOFETILDE Allergy (Uncoded 06/02/22 13:39) Difficulty Breathing Medication List - Last Reconciled 11/27/22 by Luis Sosa MD amiodarone 200 mg PO DAILY CPAP (CPAP Machine/Device) As directed diltiazem HCl 120 mg PO DAILY diltiazem HCl 30 mg PO PRN empagliflozin (Jardiance) 10 mg PO DAILY fluticasone propion-salmeterol 250-50 mcg/dose 1 inh inhalation DAILY fluticasone propionate 50 mcg/actuation 1 spray intranasal DAILY furosemide 120 mg PO DAILY ibuprofen 800 mg PO BID PRN levothyroxine 112 mcg PO DAILY losartan 25 mg PO DAILY multivitamin 1 tab PO DAILY rivaroxaban (Xarelto) 15 mg PO DAILY 90 days simvastatin 10 mg PO BEDTIME spironolactone 12.5 mg (1/2 x 25 mg) PO DAILY 90 days zolpidem 10 mg PO BEDTIME PRN HPI HPI Comments History of Present Illness Details Aysha comes for follow-up. She has been doing very well. She continues to NYHA class 2 especially when she walks up of hill. She has no orthopnea, PND, significant leg edema. She denies any episodes of atrial fibrillation in the last 6 months. She has seen Cardiothoracic surgery at [facility] and schedule for epicardial ablation. She has no lightheadedness, syncope. Denies any prolonged irregular heartbeat. No bleeding issues or neurologic events. Tolerating her medications well. [facility] Medical History Abnormal PFTs (pulmonary function tests) Sinus bradycardia Persistent atrial fibrillation VANESSA on CPAP Pulmonary hypertension Obesity HTN (hypertension) Mitral regurgitation Diastolic dysfunction Paroxysmal atrial fibrillation (HFpEF) heart failure with preserved ejection fraction Surgical History History of radiofrequency ablation (RFA) procedure for cardiac arrhythmia (~2017) Family History Father No problems noted. Mother CHF (congestive heart failure) CVD (cardiovascular disease) Social History Are you a primary career development associate to a significant other at home: No Do you presently have visiting nurse or other home services: No Alcohol intake: current Alcohol intake frequency: holidays/special occasions only Patient Tobacco Use Status: Never used Tobacco Second Hand Smoke Exposure: No Review of Systems Const Denies chills, Denies fatigue, Denies fever(s), Denies frequent falls, Denies weakness, Denies weight gain and Denies weight loss ENT Denies dizziness Card Denies chest pain, Denies leg edema, Denies lightheadedness, Denies palpitations, Denies dyspnea, Denies dyspnea on exertion, Denies orthopnea and Denies other (loss of consciousness) Resp Denies cough, Denies dyspnea and Denies dyspnea on exertion GI Denies hematochezia and Denies change in stool character Musc Denies abnormal gait, Denies muscle weakness, Denies numbness, Denies radiating pain into limb and Denies tingling Neuro Denies abnormal gait, Denies dizziness, Denies frequent falls, Denies numbness, Denies tingling and Denies weakness Endo Denies fatigue and Denies palpitations Physical Exam Vital Signs: Last Vital Signs Pulse 56 11/27/22 08:40 BP 142/86 H 11/27/22 08:40 BMI result Body Mass Index 33.9 Const General: cooperative, healthy appearing, comfortable, no acute distress, alert, awake, Physically active and well groomed Orientation/consciousness: patient oriented x3 Neck Neck: Yes normal visual inspection and Yes no JVD Resp Effort & Inspection: normal respiratory effort Auscultation: clear to auscultation bilaterally, no crackles, no rales, no rhonchi and no wheezes Cardio Jugular venous distension: no JVD Rate: regular rate Heart sounds: S1 normal heart sound present, S2 normal heart sound present, no gallops, no murmurs and no rubs Neuro General: patient oriented x3 Extrem General: Yes normal to inspection Psych Appearance: grossly normal Mental Status: mental status grossly normal Speech and movement: Normal speech and movement present Office Procedures EKG Details: EKG shows sinus bradycardia with nonspecific ST changes with QT interval of 456 milliseconds [id number], Complete Assessment & Plan Assessment & Plan (1) Paroxysmal atrial fibrillation: Comment: Repeat ablation, 12/22/2020 done at [facility]. Patient underwent repeat pulmonary vein isolation along with left atrial roof line, left atrial appendage isolation, tricuspid isthmus line for repeat flutter as well as ablation of fractional electrograms Code(s): I48.0 - Paroxysmal atrial fibrillation Plan: Patient with highly symptomatic atrial fibrillation with predominantly heart failure symptoms. She has done extremely well with rhythm control approach. However she has had multiple endocardial ablation is and requires amiodarone for maintenance. We have discussed about possibility of long-term amiodarone toxicity especially with reduced pulmonary diffusion capacity there is a concern. Off amiodarone she has had recurrent atrial fibrillation has not tolerated that well. We discussed and have referred her for 2nd opinion at [facility] for which she has discussed about epicardial ablation. We again discussed about epicardial ablation details and the role of epicardial ablation. Possibility once epicardial ablation is achieved hopefully we can reduce amiodarone dose and eventually switch her to an alternative antiarrhythmic agent to reduce long-term toxicity. This was discussed with her. Possibility of long-term amiodarone use was discussed as well. Continue current amiodarone and Cardizem as prescribed. Continue full oral anticoagulation, currently on Xarelto on a renally adjusted dose. Quarterly renal function test should be pursued. Continue CPAP therapy. Continue participate in regular exercise and weight loss program. Continue aggressive control blood pressure which is currently well optimized. She understands management well. (2) (HFpEF) heart failure with preserved ejection fraction: Comment: severe diastolic dysfuction Code(s): I50.30 - Unspecified diastolic (congestive) heart failure Qualifiers: Heart failure chronicity: chronic Qualified Code(s): I50.32 - Chronic diastolic (congestive) heart failure Plan: Heart failure preserved ejection fraction, clinically euvolemic and well compensated. She has done well on current diuretic regimen with rhythm management program with neurohormonal modulation with Jardiance and spironolactone. Continue all therapy. Heart failure management discussed in details. Continue CPAP therapy. Continue rhythm management as above. Daily weight monitoring avoidance of salt loading was discussed. Additional diuretics as need be. (3) Mitral regurgitation: Code(s): I34.0 - Nonrheumatic mitral (valve) insufficiency Plan: Mitral regurgitation which had worst is moderate. Continue to monitor clinically and by echocardiogram on annual basis. No interventions required per se for the same. Will follow up in the clinic in 6 months time, sooner p.r.n.. Thank you for allowing me to partake in her care Coding Level of Care Code Est Pt Level 4 (85454) Diagnoses Paroxysmal atrial fibrillation I48.0 Chronic heart failure with preserved ejection fraction I50.32 Heart failure chronicity: chronic Mitral regurgitation I34.0 CPT Codes EKG - CPT: 61483-[id number], Complete ([id number])
== END 2022-11-27 09:12 | disposition home or self-care (01) ==
PROVIDERS: PCP Physician Assistant Medical; Visit Provider Internal Medicine Cardiovascular Disease
DX: I48.0 Paroxysmal atrial fibrillation (principal); I50.32 Chronic diastolic (congestive) heart failure; I34.0 Nonrheumatic mitral (valve) insufficiency
CPT/HCPCS: 93010; 99214

== ENCOUNTER → 2022-11-27 08:35 | Outpatient (BNVA) | payer BC, SELFPAY | PROVIDERS: PCP Physician Assistant Medical; Visit Provider Internal Medicine Cardiovascular Disease | DX: I48.0 Paroxysmal atrial fibrillation (principal); I50.32 Chronic diastolic (congestive) heart failure; I34.0 Nonrheumatic mitral (valve) insufficiency | CPT/HCPCS: 93005 ==

== ENCOUNTER 2022-12-05 08:23 | Outpatient (AMB) | payer BC, SELFPAY ==
--- NOTE | 2022-12-05 08:32 | MHC.OFFVIS ---
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 I had seen her in the past back in 2013. During that time she did have a CT scan of the chest look for interstitial lung disease. She also underwent a sleep study that was all relatively benign. She does have atrial fibrillation and recently she did have a cardioversion. She did go to [place] and was assessed by i the pulmonary hypertension is clinic at the [facility]. There she had a cardiac catheterization and felt that she did not knee medicines at the time but she had to be closely monitor. She has noted that her dyspnea has been getting progressively worse. She gets short of breath even with minimal activity. Recently she went to the hospital for the cardioversion had a a chest x-ray demonstrating hilar predominance suggesting pulmonary hypertension. She also had an echo demonstrating elevated pressures. Her RV size and function appeared normal however. She continues to have daytime drowsiness. She hasn't ever elevated [place] score of 12/24. The patient has significant cardiovascular risk specially with this pulmonary hypertension. We need to repeat her sleep study at this time. Patient did have pulmonary function studies demonstrating a mild restrictive ventilatory defect likely from body habitus in addition to a moderate diffusion impairment likely from the underlying pulmonary vascular disease. The patient was given a short-acting beta agonist. She can use as needed. In the meantime she also has been having daytime drowsiness. She did have a sleep study demonstrating mild sleep apnea with significant hypoxia. Therefore the patient needs to start CPAP therapy as soon as 11/28/2021 the patient is here for a pulmonary follow-up visit. Since we last spoke she did go to [place] underwent a right heart catheterization. I do not have the actual report. But, the recommendation was to increase the diuretics. Explained to her that her wedge pressure was likely elevated. She does have severe diastolic dysfunction. At this point the patient was not started any vasodilators bryon therapy. She is exercising regularly. I believe this is very important. Unfortunately, due to the diuresis and other issues she has had some issues with renal insufficiency. She is monitoring closely her kidney function. The patient also has been using her CPAP. The CPAP of 6 cm seems to be affecting beneficial. Her AHI averaging around 2.5 events per hour. The patient states some days she has had than 5. Last night she was 0.3. Explained to her is likely about positioning. I kept her CPAP at 6 cm but I did tissue had grown about switching over to an auto set up which she can go up to 8 cm if she does need to consider trying the high pressure. She is using a nasal mask. This is working well for her. The patient also had a recent echocardiogram demonstrating some slight decrease in her RV pressures. 05/30/2022 the patient is here for a pulmonary follow-up visit. Since we last spoke the patient has been having issues with her atrial fibrillation. She did require cardioversion but then converted back to AFib. Currently she is on amiodarone. She has symptoms of dyspnea on exertion mild in severity. She is going to have a cardioversion tomorrow. She continues on the anticoagulation therapy. She is doing a lot better with CPAP. CPAP therapy continues to be affecting beneficial. She is using more than 4 hours a night. The patient is currently using a nasal mask. Her AHI is 3.5 which is below 5 in reassuring. Although with her ongoing cardiac arrhythmia will try to improve that some. Therefore will switch over to an APAP 6-8 with hopes that slightly increasing the pressures were better control her sleep apnea and also not to burden her tolerance with therapy that she is taking long to reach. If she cannot tolerate the higher pressure she will call me so I can reset it. She is following closely with [place] regarding pulmonary hypertension. Appears to be mainly secondary pulmonary hypertension at this time. In view of the starting the amiodarone will have her return in 6 months with PFTs to make sure that she is not developing any pulmonary adverse effects. 12/05/2022 the patient is here for a pulmonary follow-up visit. The patient continues do fairly well. She is now going to be evaluated for AA in ablation for the atrial fibrillation. She has been otherwise rate controlled for several months now on amiodarone. She did undergo pulmonary function studies and we did review the. No significant obstruction. She does have a mild restriction but likely secondary to an elevated BMI. The patient does have a moderate diffusion impairment likely going along with her underlying pulmonary vascular disease. The patient otherwise is doing well. Denies any significant shortness of breath with activity. She is also using his CPAP every night. CPAP therapy continues to be affecting beneficial. She does tolerate the lower pressures of 4-8 cm. Her AHI averaging around 2.4 events an hour for the months and otherwise 1 event an hour last night. She does use it for more than 4 hours a night. Otherwise patient is doing well will continue to provide supplies for her. And will follow-up in 6 to 8 months. [facility] Medical History Abnormal PFTs (pulmonary function tests) Sinus bradycardia Persistent atrial fibrillation VANESSA on CPAP Pulmonary hypertension Obesity HTN (hypertension) Mitral regurgitation Diastolic dysfunction Paroxysmal atrial fibrillation (HFpEF) heart failure with preserved ejection fraction Surgical History History of radiofrequency ablation (RFA) procedure for cardiac arrhythmia (~2017) Family History Father No problems noted. Mother CHF (congestive heart failure) CVD (cardiovascular disease) Social History Are you a primary gericare aide to a significant other at home: No Do you presently have visiting nurse or other home services: No Alcohol intake: current Alcohol intake frequency: holidays/special occasions only Patient Tobacco Use Status: Never used Tobacco Second Hand Smoke Exposure: No Review of Systems Const Denies daytime sleepiness and Denies night sweats ENT Denies change in voice, Denies dizziness, Denies lip swelling, Denies mouth pain, Reports nasal congestion, Denies nasal discharge and Denies tongue swelling Card Denies chest pain, Denies palpitations and Reports dyspnea on exertion Resp Reports cough and Reports dyspnea on exertion GI Denies abdominal pain Musc Denies no additional complaints Neuro Denies Neuro-related abnormal movements and Denies dizziness Psych Denies no additional complaints Endo Denies palpitations Arvin/Lymph Denies easy bleeding and Denies lymphadenopathy Aller/Immun Denies lip swelling and Denies tongue swelling Physical Exam Vital Signs: Last Vital Signs Pulse 61 12/05/22 08:33 BP 128/70 12/05/22 08:33 Pulse Ox 98 12/05/22 08:33 Oxygen Delivery Method Room Air 12/05/22 08:33 BMI result Body Mass Index 34.2 Const General: alert Neck Neck: Yes normal visual inspection, Yes full ROM and Yes no lymphadenopathy Chest Chest palpation & inspection: normal inspection of the chest Resp Effort & Inspection: normal respiratory effort Auscultation: clear to auscultation bilaterally Cardio Rate: regular rate Rhythm: regular rhythm Heart sounds: S1 normal heart sound present and S2 normal heart sound present (pronounced S2) GI Palpation (GI): Soft to palpation and nontender Auscultation: normal bowel sounds Skin General skin exam: rashes and/or lesions noted Assessment & Plan Assessment & Plan (1) Pulmonary hypertension: Comment: Secondary; WHO Group 2,3 Code(s): I27.20 - Pulmonary hypertension, unspecified (2) VANESSA on CPAP: Code(s): G47.33 - Obstructive sleep apnea (adult) (pediatric); Z99.89 - Dependence on other enabling machines and devices (3) (HFpEF) heart failure with preserved ejection fraction: Comment: severe diastolic dysfuction Code(s): I50.30 - Unspecified diastolic (congestive) heart failure Qualifiers: Heart failure chronicity: chronic Qualified Code(s): I50.32 - Chronic diastolic (congestive) heart failure (4) Abnormal PFTs (pulmonary function tests): Comment: moderate isolated diffusion impairment Code(s): R94.2 - Abnormal results of pulmonary function studies Plan continue APAP 6-8 Continue Advair once a day. Avoid DON if possible Continue diuresis as tolerated Follow up in [place] with Pulmonary HTN clinic, no vasodilators at this time scheduled for ablation follow-up in 6 months Coding Level of Care Code Tele New Pt Level 4 (51777) Diagnoses Pulmonary hypertension I27.20 VANESSA on CPAP G47.33; Z99.89 Chronic heart failure with preserved ejection fraction I50.32 Heart failure chronicity: chronic Abnormal PFTs (pulmonary function tests) R94.2 Time Spent (min) 17
[2022-12-05 08:33] VITALS: BP 128/70; PULSE 61; O2SAT 98; BMI 34.2
== END 2022-12-05 08:51 | disposition home or self-care (01) ==
PROVIDERS: PCP Physician Assistant Medical; Visit Provider Hospitalist
DX: I27.20 Pulmonary hypertension, unspecified (principal); G47.33 Obstructive sleep apnea (adult) (pediatric); Z99.89 Dependence on other enabling machines and devices; R94.2 Abnormal results of pulmonary function studies; I50.32 Chronic diastolic (congestive) heart failure
CPT/HCPCS: 99213

== ENCOUNTER → 2022-12-05 08:23 | Outpatient (BNVA) | payer BC, SELFPAY | PROVIDERS: Visit Provider Hospitalist ==